=== PATIENT | female | born 1955 | race Two or more races ===

== ENCOUNTER 2019-02-01 10:21 | Inpatient (IN) | payer MEDICARE, OTHER ==
[2019-02-01 10:38] VITALS: BMI 31.2
[2019-02-01] MEDS ORDERED: SODIUM CHLORIDE 1,000 ML IV STA (10:53)
[2019-02-01] MEDS ORDERED: ACETAMINOPHEN 1000 MG/100 ML VIAL (NON FORMULARY) IVPB ONE (10:56)
--- NOTE | 2019-02-01 10:56 | PDOC ---
History of Present Illness - General Chief Complaint: Pain Stated Complaint: RT. SIDE ABD. PAIN Time Seen by Provider: 02/01/19 10:53 History Source: Patient, Family Exam Limitations: No Limitations - History of Present Illness Initial Comments: 02/01/19 11:16 HPI 63-year-old female with history of hypertension, hyperlipidemia, diabetes mellitus presenting with RLQ abdominal pain x 2 days, a/w dizziness, anorexia, decreased appetite and PO intake, nausea. AP described as nonradiating, sharp - no alleviating or exacerbating factors. Last PO intake 2 days ago, has been drinking some water. Last medication intake ~yesterday morning, took tylenol with some relief of sx, but abdominal pain returned. Denies fever, chills, chest pain, SOB, palpitation, weakness, V, D, bladder and bowel problems, leg swelling, No sick contacts or travel. No new changes in medications. No suspicious food intake Allergies: None Past Medical History: HTN, HLD, DM2 Social history: Lives with family. No tobacco, ETOH or drug use. Surgical history: none Meds: as documented in EMR - ASA, vitamins, calcium, lisinopril, atorvastatin PMD: Antoni Falcon Review of systems Constitutional: +fevers, chills, anorexia HEENT: no headache, +dizziness. CVS: no cp or syncope. Resp: no sob. No cough. Gastrointestinal: +abdominal pain, nausea. No vomiting, diarrhea. No flank pain Genitourinary: no urinary sx, hematuria. No urgency or frequency. MUSCULOSKELETAL: No joint pain and swelling. No neck or back pain. SKIN: no redness or skin changes, no discharge, no rash. No wounds. Hematologic: no easy bruising/bleeding. NEUROLOGIC: +dizziness. No headache, LOC or altered mental status. No weakness, numbness or tingling. Psych: no anxiety or depression Allergic/Immunologic: no allergies All other systems reviewed and negative, or as documented in HPI. Physical exam: General: Well appearing, awake and alert, NAD. HEENT: NCAT, PERRL, EOMI, clear conjunctiva, anicteric, dry mucus membranes, clear oropharynx, no oral lesions.. Neck: neck supple, FROM Resp: CTAB, normal and even respirations, no respiratory distress CVS: tachycardia, no murmurs, 2+ peripheral pulses throughout, no peripheral edema Abdomen: soft, +RLQ TTP, no rebound, no Rovsings. No CVAT. Back: nontender, normal inspection and ROM MSK: no edema, GERARDO x4, ROM intact. No clubbing or cyanosis. normal bulk and tone. Neuro: alert, no focal neuro deficits. Skin: warm and well perfused, cap refill <2 sec, normal color 02/01/19 11:58 02/01/19 12:11 Past History - Past Medical History Allergies/Adverse Reactions: Allergies Allergy/AdvReac Type Severity Reaction Status Date / Time No Known Allergies Allergy Verified 02/01/19 10:35 Home Medications: Ambulatory Orders Lisinopril [Prinivil] 20 mg PO DAILY #30 tablet 11/17/14 COPD: No Diabetes: Yes HTN: Yes - Immunization History Immunization Up to Date: No - Suicide/Smoking/Psychosocial Hx Smoking History: Never smoked Information on smoking cessation initiated: No Hx Alcohol Use: No Drug/Substance Use Hx: No Substance Use Type: None *Physical Exam - Vital Signs Last Vital Signs Temp Pulse Resp BP Pulse Ox 100.0 F H 105 H 17 132/75 95 02/01/19 10:35 02/01/19 10:35 02/01/19 10:35 02/01/19 10:35 02/01/19 10:35 Heart Score/ECG Review #1 ECG reviewed & interpreted by me at: 11:40 General ECG Interpretation: Sinus Rhythm, Normal Rate 02/01/19 11:59 EKG normal sinus rhythm at 92 bpm, no interval abnormalities, narrow QRS, ST and T wave segments and morphology normal. Nonspecific T wave abnormalities ED Treatment Course - LABORATORY CBC & Chemistry Diagram: 02/01/19 11:20 02/01/19 11:20 Medical Decision Making - Medical Decision Making 02/01/19 11:16 See HPI for details Vital signs reviewed, +fever and tachycardia, normotensive DDx abdominal pain: Renal colic, biliary colic, metabolic/electrolyte derangements. GERD, PUD, esophageal spasm, pancreatitis, hepatitis, constipation , colitis, gastroenteritis, cholecystitis, UTI, pyelonephritis, ileus, SBO, medication side effect, hernia, appendicitis, peritonitis, perf viscus, diverticulitis, mesenteric ischemia. Prior notes reviewed, including admissions, discharges and consultations. laboratory results and imaging reviewed, basic labs and lytes wnl, notable for significant leukocytosis of 21K, remainder unremarkable. UA_prelim with nonspecific leuk esterase, f/u urine cultures. EKG normal sinus rhythm, no interval abnormalities, narrow QRS, ST and T wave segments and morphology normal. Nonspecific T wave abnormalities ED course - IV tylenol, fluids and analgesia. pain much improved. no peritoneal signs. hypotension likely 2/2 morphine, given 2nd liter of IVF and monitor - CT a/p to eval for Appy, high suspicion. no abdominal surgeries. CT confirms acute appy, no rupture or abscess or perf - NPO x 2 days, no appetite, only drinking water. - IV abx zosyn for empiric coverage of Acute appy, medical comorbidities and age >65 - broad coverage - surg cs dispo: admit to med/surg management of acute appy, NPO, bowel rest and analgesia prn. s/o to Dr Rai, surg cs with Dr Cordoba per primary request. primary is Dr Falcon. 02/01/19 14:14 *DC/Admit/Observation/Transfer Diagnosis at time of Disposition: Appendicitis, acute Qualifiers: Acute appendicitis type: unspecified acute appendicitis type Qualified Code(s) : K35.80 - Unspecified acute appendicitis - Discharge Dispostion Condition at time of disposition: Guarded Decision to Admit order: Yes Decision to Admit order Date/Time: 02/01/19 14:13 Decision to Admit Order Category Date Time Status Decision to Admit to Hospital Routine Admission 02/01/19 14:08 Active - Referrals - Patient Instructions - Post Discharge Activity
[2019-02-01] MEDS ORDERED: morphine CARPU-JECT 4 MG/1 ML DISP.SYRIN IVPUSH ONE (11:17)
[2019-02-01] MEDS ORDERED: ACETAMINOPHEN INJECTION 100 ML IVPB ONE (11:27)
[2019-02-01 11:35] LABS: BASO % 0.5 % (0-2.0); HEMATOCRIT 37.7 % (32.4-45.2); HEMOGLOBIN 12.7 GM/dL (10.7-15.3); LYMPH % 11.3 % (8-40); MCH 31.1 pg (25.7-33.7); MCHC 33.6 g/dl (32.0-36.0); MEAN CELL VOLUME 92.7 fl (80-96); MEAN PLT VOLUME 7.8 fl (7.5-11.1); MONO % 5.6 % (3.8-10.2); NEUT % 82.6 % (42.8-82.8); PLATELET COUNT 339 K/MM3 (134-434); RBC 4.07 M/mm3 (3.60-5.2); RDW 14.5 % (11.6-15.6); WHITE BLOOD COUNT 21.7 K/mm3 (4.0-10.0)
[2019-02-01 11:57] LABS: ALBUMIN 3.3 g/dl (3.4-5.0); ALK PHOS 88 U/L (45-117); ANION GAP 9 MMOL/L (8-16); BILIRUBIN,TOTAL 0.5 mg/dL (0.2-1); BLOOD UREA NITROGEN 20 mg/dL (7-18); CALCIUM 8.6 mg/dL (8.5-10.1); CHLORIDE 96 mmol/L (98-107); CO2 28 mmol/L (21-32); CREATININE 0.9 mg/dL (0.55-1.3); GLUCOSE,RANDOM 237 mg/dL (74-106); LIPASE 43 U/L (73-393); POTASSIUM 4.2 mmol/L (3.5-5.1); SGOT/AST 7 U/L (15-37); SGPT/ALT 16 U/L (13-61); SODIUM 133 mmol/L (136-145); TOT PROT 6.7 g/dl (6.4-8.2)
[2019-02-01] MEDS ORDERED: morphine SULFATE 4 MG/ML VIAL ONE ×2 (12:03→21:33)
[2019-02-01] MEDS ORDERED: PIPERACILLIN/TAZOB 4.5 GM 4.5 GM in DEXTROSE 5%-WATER 100 ML IVPB ONE (12:59)
[2019-02-01 13:04] LABS: ANISOCYTOSIS 2+; MACROCYTOSIS 0; PLATELET ESTIMATE NORMAL
[2019-02-01] MEDS ORDERED: PIPERACILLIN/TAZOB 4.5 GM 4.5 GM/100 ML BAG IVPB ONE ×2 (13:07→21:33)
[2019-02-01 13:41] LABS: URINE APPEARANCE CLEAR; URINE BILIRUBIN NEGATIVE (NEGATIVE); URINE COLOR YELLOW; URINE GLUCOSE (UA) NEGATIVE (NEGATIVE); URINE KETONE NEGATIVE (NEGATIVE); URINE LEUK ESTERASE 1+ (NEGATIVE); URINE NITRITE NEGATIVE (NEGATIVE); URINE PROTEIN NEGATIVE (NEGATIVE); URINE UROBILINOGEN 0.2 mg/dL (0.2-1.0)
[2019-02-01 14:08] LABS: EPI CELLS 1.2 /HPF (0-5/HPF); URINE BACTERIA 16.3 /hpf (NEGATIVE); URINE CASTS 1.86 /lpf (0-8); URINE WBC 5.2 /hpf (0-5)
[2019-02-01] MEDS ORDERED: SODIUM CHLORIDE 0.9% 500 ML INFUS.BAG IV ONE (14:10)
[2019-02-01] MEDS ORDERED: ACETAMINOPHEN 1000 MG/100 ML VIAL (NON FORMULARY) IVPB PRN (15:10)
[2019-02-01] MEDS ORDERED: morphine SULFATE 4 MG/ML VIAL IVPUSH PRN (15:10)
[2019-02-01] MEDS ORDERED: METOPROLOL TARTRATE 5 MG/5 ML VIAL IVPB PRN (15:21)
--- NOTE | 2019-02-01 15:47 | HP ---
Admitting History and Physical - Primary Care Physician PCP: Antoni Falcon S - Admission Chief Complaint: abdominal pain History of Present Illness: 63-year-old female with history of hypertension, hyperlipidemia, diabetes mellitus presenting with RLQ abdominal pain x 2 days, a/w dizziness, anorexia, decreased appetite and PO intake, nausea. pain is described as nonradiating, sharp - no alleviating or exacerbating factors. Last PO intake 2 days ago, has been drinking some water. Last medication intake ~yesterday morning, took tylenol with some relief of sx, but abdominal pain returned. per daughter mother last took aspirin on friday since then she has not eaten anything bc she felt nauseous and hot so came to ER Denies fever, chills, chest pain, SOB, palpitation, weakness, V, D, bladder and bowel problems, leg swelling, No sick contacts or travel. No new changes in medications. No suspicious food intake in ER found to have temp 100.0 wbc 21 History Source: Patient, Family Member, Medical Record - Past Medical History Cardiovascular: Yes: HTN, Hyperlipdemia Endocrine: Yes: Diabetes Mellitus - Smoking History Smoking history: Never smoked - Alcohol/Substance Use Hx Alcohol Use: No Home Medications - Allergies Allergies/Adverse Reactions: Allergies Allergy/AdvReac Type Severity Reaction Status Date / Time No Known Allergies Allergy Verified 02/01/19 10:35 - Home Medications Home Medications: Ambulatory Orders Aspirin [Aspirin EC] 81 mg PO DAILY 02/01/19 Atorvastatin Ca [Lipitor] 40 mg PO HS 02/01/19 Calcium Carb, Citrate/Vit D3 [Calcium + D3 ER Tablet] 1 each PO DAILY 02/01/19 Glimepiride 4 mg PO BID 02/01/19 Lisinopril [Prinivil] 10 mg PO DAILY 02/01/19 Review of Systems - Review of Systems Constitutional: reports: Loss of Appetite Gastrointestinal: reports: Abdominal Pain Physical Examination Vital Signs: Vital Signs Temperature 99.0 F 02/01/19 13:48 Pulse Rate 92 H 02/01/19 13:48 Respiratory Rate 20 02/01/19 13:48 Blood Pressure 99/59 L 02/01/19 13:48 O2 Sat by Pulse Oximetry (%) 94 L 02/01/19 13:50 Constitutional: Yes: Calm Cardiovascular: Yes: Regular Rate and Rhythm, S1, S2 Respiratory: Yes: CTA Bilaterally Gastrointestinal: Yes: Normal Bowel Sounds, Tenderness (RLQ) Labs: CBC, BMP 02/01/19 11:20 02/01/19 11:20 Imaging - Results Cat Scan: Report Reviewed (extensive inflammatory changes in RLQ with hepatospleenomegaly and fatty liver) Problem List - Problems (1) Appendicitis, acute Assessment/Plan: NPO IVF IV zosyn ID surgical; eval pain control Dr Cordoba iv zofran as needed dvt ppx Code(s): K35.80 - UNSPECIFIED ACUTE APPENDICITIS Qualifiers: Acute appendicitis type: unspecified acute appendicitis type Qualified Code (s): K35.80 - Unspecified acute appendicitis (2) HTN (hypertension) Assessment/Plan: hold anti hn given low BP Code(s): I10 - ESSENTIAL (PRIMARY) HYPERTENSION (3) Fever Assessment/Plan: leukocytosis cultures urine and blood ID iv abx Code(s): R50.9 - FEVER, UNSPECIFIED
[2019-02-01] MEDS: SODIUM CHLORIDE 1,000 ML IV SCH (16:45)
--- NOTE | 2019-02-01 17:51 | EKG ---
Test Reason : Blood Pressure : / mmHG Vent. Rate : 092 BPM Atrial Rate : 092 BPM P-R Int : 132 ms QRS Dur : 080 ms QT Int : 352 ms P-R-T Axes : 061 042 042 degrees QTc Int : 435 ms NORMAL SINUS RHYTHM POSSIBLE LEFT ATRIAL ENLARGEMENT NONSPECIFIC ST ABNORMALITY ABNORMAL ECG WHEN COMPARED WITH ECG OF 17-NOV-2014 14:48, VENT. RATE HAS INCREASED BY 33 BPM Confirmed by RITA MILIAN MD ([id number]) on 02/01/2019 5:50:57 PM Referred By: Confirmed By:RITA MILIAN MD
--- NOTE | 2019-02-01 17:59 | CONSULT ---
Consult Consult Specialty:: Surgery Referred by:: Nurys Reason for Consultation:: Abdominal pain , acute appendicitis. - History of Present Illness Chief Complaint: C/O Right lowerquadrant abdominal pain x 2 days. - History Source History Provided By: Patient, Family Member Limitations to Obtaining History: No Limitations - Past Medical History Cardio/Vascular: Yes: HTN, Hyperlipdemia Endocrine: Yes: Diabetes Mellitus - Alcohol/Substance Use Hx Alcohol Use: No - Smoking History Smoking history: Never smoked Home Medications - Allergies Allergies/Adverse Reactions: Allergies Allergy/AdvReac Type Severity Reaction Status Date / Time No Known Allergies Allergy Verified 02/01/19 10:35 - Home Medications Home Medications: Ambulatory Orders Aspirin [Aspirin EC] 81 mg PO DAILY 02/01/19 Atorvastatin Ca [Lipitor] 40 mg PO HS 02/01/19 Calcium Carb, Citrate/Vit D3 [Calcium + D3 ER Tablet] 1 each PO DAILY 02/01/19 Glimepiride 4 mg PO BID 02/01/19 Lisinopril [Prinivil] 10 mg PO DAILY 02/01/19 Review of Systems - Review of Systems Gastrointestinal: reports: Abdominal Pain Physical Exam Vital Signs: Vital Signs Temperature 99.1 F 02/01/19 15:45 Pulse Rate 80 02/01/19 15:45 Respiratory Rate 18 02/01/19 15:45 Blood Pressure 100/55 L 02/01/19 15:45 O2 Sat by Pulse Oximetry (%) 96 02/01/19 15:45 Gastrointestinal: Yes: Abdomen, Obese, Tenderness (Tender in right lowerquadrant of abdomen. Obese) Labs: CBC, BMP 02/01/19 11:20 02/01/19 11:20 Imaging - Results Cat Scan: Report Reviewed, Image Reviewed (Acute appendicitis with adjacent inflammation of cecum and ilium.) Problem List - Problems (1) Appendicitis, acute Code(s): K35.80 - UNSPECIFIED ACUTE APPENDICITIS Qualifiers: Acute appendicitis type: unspecified acute appendicitis type Qualified Code (s): K35.80 - Unspecified acute appendicitis (2) Abdominal pain Code(s): R10.9 - UNSPECIFIED ABDOMINAL PAIN Qualifiers: Abdominal location: right lower quadrant Qualified Code(s): R10.31 - Right lower quadrant pain (3) Obesity Code(s): E66.9 - OBESITY, UNSPECIFIED (4) HTN (hypertension) Code(s): I10 - ESSENTIAL (PRIMARY) HYPERTENSION Assessment/Plan Impression : Acute appendictis. Plan : laparoscopic appendectomy possible open. Procedure was explained to the patient and her daughter. Consent obtained. Risks , benefits and complications were explained .
[2019-02-01] MEDS ORDERED: PIPERACILLIN/TAZOB 3.375 GM 3.375 GM in DEXTROSE 5%-WATER - 50 ML IVPB SCH ×2 (18:00→19:15)
[2019-02-01] MEDS ORDERED: fentaNYL CITRATE 250 MCG/5 ML VIAL ONE (19:56)
[2019-02-01] MEDS ORDERED: SUCCINYLCHOLINE CHLORIDE 200 MG/10 ML VIAL ONE (19:56)
[2019-02-01] MEDS ORDERED: PROPOFOL 20 ML ONE (19:56)
--- NOTE | 2019-02-01 20:00 | OP ---
Operative Note - Note: Operative Date: 02/01/19 Pre-Operative Diagnosis: Acute Appendicitis Operation: Laparoscopic appendectomy Surgeon: Yaw Cordoba Anesthesiologist/SUSTAINABILITY CONSULTANT: Don Yee Anesthesia: General Specimens Removed: Appendix
[2019-02-01] MEDS ORDERED: ROCURONIUM BROMIDE 50 MG/5 ML VIAL ONE (20:11)
[2019-02-01] MEDS ORDERED: KETOROLAC TROMETHAMINE 30 MG/1 ML VIAL ONE ×2 (20:12→21:33)
[2019-02-01] MEDS ORDERED: DEXAMETHASONE SOD PHOSPHATE 4 MG/1 ML VIAL ONE (20:12)
[2019-02-01] MEDS ORDERED: BUPIVACAINE HCL/PF (5 MG/ML) 30 ML VIAL IJ ONE (20:49)
[2019-02-01] MEDS ORDERED: NEOSTIGMINE METHYLSULFATE 0.5 MG/ML - 10 ML MDV ONE (20:54)
[2019-02-01] MEDS ORDERED: GLYCOPYRROLATE 0.2 MG/1 ML VIAL ONE ×2 (20:55)
--- NOTE | 2019-02-01 21:10 | OP ---
Operative Note - Note: Operative Date: 02/01/19 Pre-Operative Diagnosis: Acute appendicitis Operation: Laparoscopic appendectomy. Findings: Acute gangrenous appendicitis with perforation and abscess. Retrocecal appendix Post-Operative Diagnosis: Other (Acute gangrenous , perforated appendicitis with perappendiceal abscess.) Surgeon: Yaw Cordoba Specimens Removed: Appendix Estimated Blood Loss (mls): 10 Operative Report Dictated: Yes
[2019-02-01] MEDS ORDERED: ONDANSETRON 4 MG/2 ML VIAL IVPUSH PRN (21:21)
[2019-02-01] MEDS ORDERED: PROMETHAZINE HCL 25 MG/1 ML VIAL IVPUSH PRN (21:21)
[2019-02-01] MEDS ORDERED: oxyCODONE HCL 5 MG TABLET PO PRN (21:21)
[2019-02-01] MEDS ORDERED: D5-1/2NS+20 MEQ KCL - 20 MEQ/1,000 ML INFUS.BAG IV SCH (21:30)
[2019-02-01] MEDS ORDERED: morphine CARPU-JECT 4 MG/1 ML DISP.SYRIN IVPUSH PRN (21:33)
[2019-02-01] MEDS: ACETAMINOPHEN 1000 MG/100 ML VIAL (NON FORMULARY) IVPB ONE (21:35)
--- NOTE | 2019-02-01 22:19 | OP ---
DATE OF OPERATION: 02/01/2019 PREOPERATIVE DIAGNOSIS: Acute appendicitis. POSTOPERATIVE DIAGNOSES: Acute gangrenous appendicitis with perforation and abscess and retrocecal appendix. SURGEON: Celestina Cordoba MD ANESTHESIA: General anesthesia. OPERATIVE DESCRIPTION: This 63-year-old woman presented with right lower quadrant abdominal pain for 2 days, with nausea and vomiting. The patient was tender in the right lower quadrant. CT scan suggested acute inflammation with appendicitis. Patient is also obese and diabetic. Consent was obtained for laparoscopic appendectomy, possible open. Risks, benefits, and complications had been discussed with the patient. The patient was given Zosyn in the emergency room. Patient brought to the operating room, general anesthesia was administered. Sosa catheter was placed in the bladder, which was removed right after surgery. The abdomen was painted and draped. Timeout was called. An incision was made in the infraumbilical portion of the umbilicus. This was deepened through the skin, subcutaneous tissue, and linea alba. The peritoneum was incised and a 12-mm laparoscopic trocar of the Danyel type was introduced into the abdominal cavity. The abdomen was insufflated with carbon dioxide at 6 L/min with an ultimate intraabdominal pressure of 15 mmHg. Two stay sutures of 2-0 Vicryl were obtained to anchor the trocar to the abdominal wall. Another 5-mm trocar was inserted in the midline and this was in the suprapubic region. This was noted to enter the abdominal cavity under direct vision of the camera. A 3rd trocar, another 5-mm, was inserted in the right upper quadrant of the abdomen. This was, again, noted to enter the abdominal cavity under direct vision of the camera. The camera was then switched to the suprapubic port. With an EndoPeanut, the right lower quadrant was visualized. There was a lot of purulent exudate over the cecum, appendix, and terminal ileum. The appendix was noted to be retrocecal in location and gangrenous about 1 to 2 cm from the base of the appendix. The cecum was then mobilized towards the midline, incising the lateral peritoneal reflection, thus visualizing the appendix more clearly. With sharp and blunt dissection, the base of the appendix was freed from the cecum. When this was freed, an EndoGIA was introduced through the umbilical port and fired across the base of the appendix. The staple line was complete. The base of the appendix was then held with a grasper in the right upper quadrant of the abdomen and retracted anteriorly and cephalad, thus exposing more of the mesoappendix. This was then carefully divided between using the Harmonic Scalpel, all the way towards the tip of the appendix. The appendectomy was, thus, completed. An EndoCatch was then introduced through the umbilical port. The appendix was placed in the EndoCatch and retrieved out of the abdominal cavity. A swab was obtained for culture and antibiotic sensitivity examination from the surface of the appendix. The appendix was then sent to Pathology. The cecum and terminal ileum were then freed from their adhesions. The terminal ileum was normal, with no inflammation. There was a lot of exudate on the peritoneal surface, which was thoroughly irrigated with normal saline. There was no kink in the terminal ileum. This was freed all the way towards the cecum. After thorough irrigation of the right lower quadrant of the abdomen, a 10-mm DANIA drain was introduced through the umbilical port and brought out through the suprapubic port. The DANIA was then left in the pelvis in the right lateral gutter of the ascending colon. After thorough irrigation, the instruments and trocars were removed from the abdominal cavity. The linea alba in the midline was approximated with interrupted [id number] 2-0 Vicryl sutures. Then, 0.5% Marcaine was injected into the wound. Skin was approximated with buried, interrupted 4-0 Biosyn sutures. Dermabond was applied to close the skin edges. The drain was sutured to the skin edge with 2- 0 Prolene sutures. ESTIMATED BLOOD LOSS: About 15 to 20 mL. SPONGE COUNT/INSTRUMENT COUNT: Correct. The patient was extubated and sent to the recovery room in satisfactory and stable condition. Ana [id number] MTDD
--- NOTE | 2019-02-02 00:29 | HOSP ---
Subjective - Review of Symptoms Pulmonary: Yes: Dyspnea Physical Examination Vital Signs: Vital Signs Temperature 99.7 F H 02/01/19 22:19 Pulse Rate 102 H 02/01/19 22:19 Respiratory Rate 16 02/01/19 22:19 Blood Pressure 132/68 02/01/19 22:19 O2 Sat by Pulse Oximetry (%) 96 02/01/19 22:18 Cardiovascular: Yes: Tachycardia Respiratory: Yes: CTA Bilaterally, On Nasal O2, SOB Labs: CBC, BMP 02/01/19 11:20 02/01/19 11:20 Hospitalist Encounter Assessment: Episodic Note 02/02 @ 12am Called by RN patient has hypoxia on room air and patient mainly Telugu speaking and with c/o SOB. S She is status point appendectomy by Dr. Cordoba for acute appendicitis and returned from the OR around 10pm. Oxygen saturation has improved on oxygen therapy 4 L by nasal canula. Patient was seen and examined at bedside. She has tachycardia with heart rates in the 100's. She does not appear to be fluid overloaded. Lungs are clear and no significant lower extremity noted. She reports shortness of breath. BP is stable. She does not appear to be in acute respiratory distress. Plan: Will check ABG and BNP STAT. She has a normal creatinine. CT angiogram of chest ordered STAT to exclude pulmonary embolism. Transfer to telemetry floor. Plan of care discussed with RN. Critical Care Total Critical Care Time (in minutes): 15
[2019-02-02 00:57] LABS: INR 1.12 (0.83-1.09); PROTHROMBIN TIME (PATIENT) 13.2 SEC (9.7-13.0)
[2019-02-02] MEDS ORDERED: PIPERACILLIN/TAZOB 2.25 GM 2.25 GM in DEXTROSE 5%-WATER - 50 ML IVPB ONE (01:50)
[2019-02-02] MEDS ORDERED: AZITHROMYCIN IVPB 500 MG/250 ML BAG IVPB ONE (01:50)
[2019-02-02] MEDS: PIPERACILLIN/TAZOB 3.375 GM 3.375 GM in DEXTROSE 5%-WATER - 50 ML IVPB SCH ×4 (02:00→17:20)
[2019-02-02] MEDS ORDERED: PIPERACILLIN/TAZOB 3.375 GM 3.375 GM in DEXTROSE 5%-WATER - 50 ML IVPB SCH (02:00)
[2019-02-02] MEDS: ACETAMINOPHEN 1000 MG/100 ML VIAL (NON FORMULARY) IVPB ONE (05:20)
[2019-02-02 07:01] LABS: BASO % 0.1 % (0-2.0); HEMATOCRIT 32.2 % (32.4-45.2); HEMOGLOBIN 10.9 GM/dL (10.7-15.3); LYMPH % 6.5 % (8-40); MCH 30.9 pg (25.7-33.7); MCHC 33.7 g/dl (32.0-36.0); MEAN CELL VOLUME 91.6 fl (80-96); MEAN PLT VOLUME 7.8 fl (7.5-11.1); MONO % 3.4 % (3.8-10.2); PLATELET COUNT 300 K/MM3 (134-434); RBC 3.52 M/mm3 (3.60-5.2); RDW 14.7 % (11.6-15.6); WHITE BLOOD COUNT 16.8 K/mm3 (4.0-10.0)
[2019-02-02 07:17] LABS: ALBUMIN 2.6 g/dl (3.4-5.0); ALK PHOS 76 U/L (45-117); ANION GAP 9 MMOL/L (8-16); BILIRUBIN,TOTAL 0.6 mg/dL (0.2-1); BLOOD UREA NITROGEN 13 mg/dL (7-18); CALCIUM 8.5 mg/dL (8.5-10.1); CHLORIDE 107 mmol/L (98-107); CO2 25 mmol/L (21-32); CREATININE 0.6 mg/dL (0.55-1.3); GLUCOSE,RANDOM 203 mg/dL (74-106); POTASSIUM 4.2 mmol/L (3.5-5.1); SGOT/AST 4 U/L (15-37); SGPT/ALT 13 U/L (13-61); SODIUM 140 mmol/L (136-145); TOT PROT 5.5 g/dl (6.4-8.2)
[2019-02-02] MEDS ORDERED: PHENOL 177 ML SPRAY BOTTLE MM PRN (08:36)
[2019-02-02] MEDS ORDERED: SIMETHICONE 80 MG TAB.CHEW (FP) PO PRN (08:36)
[2019-02-02] MEDS ORDERED: BENZOCAINE/MENTH/CETYLPYRD CL 1 EACH LOZENGE MM PRN (08:36)
--- NOTE | 2019-02-02 08:41 | PN ---
Progress Note, Physician Chief Complaint: EVENTS AND NOTES REVIEWED S/P APPENDECTOMY C/O PRESSURE LIKE PAIN ABD - Current Medication List Current Medications: Active Medications Acetaminophen (Ofirmev Injection -) 1,000 mg IVPB Q6H PRN PRN Reason: PAIN LEVEL 1-5 Benzocaine/Menthol (Cepacol Lozenge -) 1 each MM PRN PRN PRN Reason: SORE THROAT Chlorhexidine Gluconate (Hibiclens For Decolonization -) 1 applic TP HS LEFTY Sodium Chloride (Normal Saline -) 1,000 mls @ 75 mls/hr IV ASDIR LEFTY Last Admin: 02/01/19 16:45 Dose: 75 mls/hr Piperacillin Sod/Tazobactam (Sod 3.375 gm/ Dextrose) 50 mls @ 100 mls/hr IVPB Q8H-IV LEFTY; Protocol Stop: 02/02/19 10:29 Last Admin: 02/02/19 05:23 Dose: Not Given Piperacillin Sod/Tazobactam (Sod 3.375 gm/ Dextrose) 50 mls @ 100 mls/hr IVPB Q8H-IV LEFTY; Protocol Morphine Sulfate (Morphine Sulfate) 4 mg IVPUSH Q6H PRN PRN Reason: PAIN LEVEL 6-10 Mupirocin (Bactroban Ointment (For Decolonization) -) 1 applic NS BID LEFTY Stop: 02/07/19 09:59 Phenol/Menthol (Chloraseptic -) 1 spray MM Q6HPO PRN PRN Reason: SORE THROAT Simethicone (Mylicon -) 80 mg PO Q4H PRN PRN Reason: INDIGESTION - Objective Vital Signs: Vital Signs Temperature 98.2 F 02/02/19 06:00 Pulse Rate 89 02/02/19 06:00 Respiratory Rate 18 02/02/19 06:00 Blood Pressure 108/61 02/02/19 06:00 O2 Sat by Pulse Oximetry (%) 96 02/02/19 05:56 Constitutional: Yes: Mild Distress Eyes: Yes: WNL HENT: Yes: WNL Neck: Yes: WNL Cardiovascular: Yes: Regular Rate and Rhythm Respiratory: Yes: WNL Gastrointestinal: Yes: Distention, Tenderness, Other Genitourinary: Yes: Incontinence Musculoskeletal: Yes: WNL Extremities: Yes: WNL Edema: No Peripheral Pulses WNL: Yes Integumentary: Yes: WNL Wound/Incision: Yes: Clean/Dry Neurological: Yes: WNL ...Motor Strength: WNL Psychiatric: Yes: WNL Labs: CBC, BMP 02/02/19 05:30 02/02/19 05:30 INR, PTT INR 1.12 (0.83-1.09) H 02/01/19 11:50 Problem List - Problems (1) Abdominal pain Code(s): R10.9 - UNSPECIFIED ABDOMINAL PAIN Qualifiers: Abdominal location: right lower quadrant Qualified Code(s): R10.31 - Right lower quadrant pain (2) Appendicitis, acute Code(s): K35.80 - UNSPECIFIED ACUTE APPENDICITIS Qualifiers: Acute appendicitis type: unspecified acute appendicitis type Qualified Code (s): K35.80 - Unspecified acute appendicitis (3) HTN (hypertension) Code(s): I10 - ESSENTIAL (PRIMARY) HYPERTENSION (4) Obesity Code(s): E66.9 - OBESITY, UNSPECIFIED Assessment/Plan POD #1 APPENDECTOMY IV ZOSYN DVT PROPHYLAXIS/INCENTIVE SPIROMETER ORDERED F/U LABS OOB TO CHAIR
--- NOTE | 2019-02-02 09:09 | CON.CARD ---
Consult Consult Specialty:: Cardiology Referred by:: Dr. Nuno Reason for Consultation:: CAD - History of Present Illness Chief Complaint: sob History of Present Illness: 63 year old woman with pmh htn, hld, dmii, admitted with acute appendicitis s/p appendectomy 02/01/19 which was found to be gangrenous and perforated, developed sob and hypoxia postoperatively. CTA chest done showing no PE, no evidence of pulmonary edema, possible infiltrates. Pt seen and examined today in nad. pts daughter on phone acts as custodial services manager at pts request. pt states she is feeling better this am. no further sob. no chest pain. only abdominal discomfort. - History Source History Provided By: Patient, Family Member Limitations to Obtaining History: Language Barrier - Past Medical History Cardio/Vascular: Yes: HTN, Hyperlipdemia Endocrine: Yes: Diabetes Mellitus - Alcohol/Substance Use Hx Alcohol Use: No - Smoking History Smoking history: Never smoked - Social History ADL: Independent History of Recent Travel: No Home Medications - Allergies Allergies/Adverse Reactions: Allergies Allergy/AdvReac Type Severity Reaction Status Date / Time No Known Allergies Allergy Verified 02/01/19 10:35 - Home Medications Home Medications: Ambulatory Orders Aspirin [Aspirin EC] 81 mg PO DAILY 02/01/19 Atorvastatin Ca [Lipitor] 40 mg PO HS 02/01/19 Calcium Carb, Citrate/Vit D3 [Calcium + D3 ER Tablet] 1 each PO DAILY 02/01/19 Glimepiride 4 mg PO BID 02/01/19 Lisinopril [Prinivil] 10 mg PO DAILY 02/01/19 Family Disease History - Family Disease History Family History: Denies Review of Systems - Review of Systems Constitutional: denies: No Symptoms, Chills, Diaphoresis, Fever, Lethargy, Loss of Appetite, Malaise, Night Sweats, Unintentional Wgt. Loss, Weakness, Other Eyes: denies: No Symptoms, Blind Spots, Blurred Vision, Double Vision, Eye Pain , Floaters, Photophobia, Recent Change in Vision, Other HENT: denies: No Symptoms, Difficult Swallowing, Ear Discharge, Ear Pain, Epistaxis, Gingival Bleeding, Hearing Loss, Mouth Swelling, Nasal Congestion, Ocular Prosthesis, Throat Pain, Toothache, Ringing in Ears, Other Neck: denies: No Symptoms, Decreased ROM, Lumps, Pain on Movement, Stiffness, Swollen Glands, Tenderness, Other Cardiovascular: reports: Shortness of Breath. denies: No Symptoms, Chest Pain, Edema, Palpitations, Other Respiratory: reports: SOB. denies: No Symptoms, Cough, Exercise Intolerance, Hemoptysis, Orthopnea, PND, Snoring, SOB on Exertion, Wheezing, Other Gastrointestinal: reports: Abdominal Pain, Nausea, Vomiting. denies: No Symptoms, Bloating, Constipation, Diarrhea, Dysphagia, Indigestion, Melena, Rectal Bleeding, Vomiting Blood, Other Genitourinary: denies: No Symptoms, Burning, Discharge, Dysuria, Flank Pain, Frequency, Hematuria, Incontinence, Lesions, Menses, Pain, Testicular Mass, Testicular Pain, Testicular Swelling, Urgency, Vaginal Bleeding, Other Breasts: denies: No Symptoms Reported, See HPI, Breast Implants, Discharge from Nipple, Lumps, Pain, Skin Changes, Other Musculoskeletal: denies: No Symptoms, Back Pain, Crepitus, Decreased ROM, Extremity Pain, Joint Pain, Joint Swelling, Muscle Pain, Muscle Cramps, Muscle Weakness, Other Integumentary: reports: Incision. denies: No Symptoms, Blister, Bruising, Change in Color, Eczema, Erythema, Lesions, Lump, Pallor, Pruritis, Rash, Wound , Other Neurological: denies: No Symptoms, Change in LOC, Change in Speech, Confusion, Dizziness, Headache, Incoordination, Numbness, Parasthesia, Pre-Existing Deficit , Seizure, Syncope, Tremors, Unsteady Gait, Weakness, Other Endocrine: denies: No Symptoms, Excessive Sweating, Flushing, Increased Hunger, Increased Thirst, Intolerance to Cold, Intolerance to Heat, Unexplained Weight Gain, Unexplained Weight Loss, Other Hematology/Lymphatic: denies: No Symptoms, Easily Bruised, Excessive Bleeding, Swollen Glands, Other Psychiatric: denies: No Symptoms, Altered Sleep Pattern, Anxiety, Depression, Hallucinations, Panic, Paranoia, Suicidal, Other - Risk Factors Known Risk Factors: Yes: Diabetes Mellitus, Hypercholesterolemia, Hypertension Vital Signs: Vital Signs Temperature 98.2 F 02/02/19 06:00 Pulse Rate 89 02/02/19 08:00 Respiratory Rate 20 02/02/19 08:00 Blood Pressure 118/61 02/02/19 08:00 O2 Sat by Pulse Oximetry (%) 96 02/02/19 05:56 Constitutional: Yes: No Distress, Calm Eyes: Yes: Conjunctiva Clear, EOM Intact, PERRL HENT: Yes: Atraumatic, Normocephalic Neck: Yes: Supple, Trachea Midline Respiratory: Yes: Regular, Diminished, On Nasal O2. No: Rales, Rhonchi, SOB, Wheezes Gastrointestinal: Yes: Normal Bowel Sounds, Tenderness. No: Distention Cardiovascular: Yes: Regular Rate and Rhythm. No: Bradycardia, Tachycardia, Pulse Irregular, Gallop, Rub, Varicosities JVD: No Carotid Bruit: No PMI: Non-Displaced Heart Sounds: Yes: S1, S2. No: Split S2, S3, S4, Clicks, Gallop, Rub, Bruit Murmur: No: Systolic Murmur, Diastolic Murmur Extremities: Yes: WNL Edema: No Peripheral Pulses WNL: Yes Neurological: Yes: Alert, Oriented Psychiatric: Yes: Alert, Oriented - Other Data Labs, Other Data: CBC, BMP 02/02/19 05:30 02/02/19 05:30 INR, PTT INR 1.12 (0.83-1.09) H 02/01/19 11:50 Troponin, BNP 02/02/19 00:01 B-Natriuretic Peptide 552.2 H Troponin, BNP 02/02/19 00:01 B-Natriuretic Peptide 552.2 H ekg 02/01/19 nsr 92bpm, nsst Imaging - Results Chest X-ray: Report Reviewed, Image Reviewed EKG: Report Reviewed, Image Reviewed Other: Report Reviewed, Image Reviewed (tele-nsr, sinus tach no sig arrhythmias) Assessment/Plan 63 year old woman with pmh htn, hld, dmii, admitted with acute appendicitis s/p appendectomy 02/01/19 which was found to be gangrenous and perforated, developed sob and hypoxia postoperatively. CTA chest done showing no PE, no evidence of pulmonary edema, possible infiltrates. pts daughter on phone acts as custodial services manager at pts request. pt states she is feeling better this am. no further sob. no chest pain. only abdominal discomfort. SOB/hypoxia-post op from appendectomy for gangrenous/perforated appendix -uncertain etiology of sob -sob improved today -CTA chest showed no PE, no sig pulm edema -being treated for presumed sepsis -would check Cardiac enzymes -serial ekgs -does not require diuresis at this time -check echo to evaluate LV function/structural heart disease -nuclear stress test done 02/11/2017 showed no ischemia, normal LVEF, of note was done for c/o SOB (listed as indication for test, was referred by Dr. Maldonado)
[2019-02-02] MEDS ORDERED: MUPIROCIN 2% TOPICAL OINTMENT FOR DECOLONIZATION NS SCH ×2 (10:00)
[2019-02-02] MEDS ORDERED: PIPERACILLIN/TAZOBACTAM 3.375 GM VIAL IVPB ONE ×2 (10:08→17:15)
[2019-02-02] MEDS ORDERED: DEXTROSE 5%-WATER - 50 ML IVPB ONE ×2 (10:08→17:15)
[2019-02-02] MEDS ORDERED: PIPERACILLIN/TAZOB 3.375 GM 3.375 GM in DEXTROSE 5%-WATER - 50 ML IVPB ONE (10:15)
[2019-02-02] MEDS: MUPIROCIN 2% TOPICAL OINTMENT FOR DECOLONIZATION NS SCH ×2 (10:16→22:00)
--- NOTE | 2019-02-02 11:14 | PN ---
Progress Note (short form) - Note Progress Note: POD#1 laparoscopic appendectomy for g angenous perforated appendix R/O sepsis secondary to GI source Await c/s Continue jovon
--- NOTE | 2019-02-02 11:16 | PN ---
Progress Note, Physician - Current Medication List Current Medications: Active Medications Acetaminophen (Ofirmev Injection -) 1,000 mg IVPB Q6H PRN PRN Reason: PAIN LEVEL 1-5 Benzocaine/Menthol (Cepacol Lozenge -) 1 each MM PRN PRN PRN Reason: SORE THROAT Chlorhexidine Gluconate (Hibiclens For Decolonization -) 1 applic TP HS LEFTY Sodium Chloride (Normal Saline -) 1,000 mls @ 75 mls/hr IV ASDIR LEFTY Last Admin: 02/01/19 16:45 Dose: 75 mls/hr Piperacillin Sod/Tazobactam (Sod 3.375 gm/ Dextrose) 50 mls @ 100 mls/hr IVPB Q8H-IV LEFTY; Protocol Morphine Sulfate (Morphine Sulfate) 4 mg IVPUSH Q6H PRN PRN Reason: PAIN LEVEL 6-10 Mupirocin (Bactroban Ointment (For Decolonization) -) 1 applic NS BID LEFTY Stop: 02/07/19 09:59 Last Admin: 02/02/19 10:16 Dose: 1 applic Phenol/Menthol (Chloraseptic -) 1 spray MM Q6HPO PRN PRN Reason: SORE THROAT Simethicone (Mylicon -) 80 mg PO Q4H PRN PRN Reason: INDIGESTION - Objective Vital Signs: Vital Signs Temperature 98.2 F 02/02/19 06:00 Pulse Rate 89 02/02/19 08:00 Respiratory Rate 20 02/02/19 08:00 Blood Pressure 118/61 02/02/19 08:00 O2 Sat by Pulse Oximetry (%) 96 02/02/19 05:56 Labs: CBC, BMP 02/02/19 05:30 02/02/19 05:30 INR, PTT INR 1.12 (0.83-1.09) H 02/01/19 11:50 Problem List - Problems (1) Appendicitis, acute Code(s): K35.80 - UNSPECIFIED ACUTE APPENDICITIS Qualifiers: Qualified Code(s): K35.80 - Unspecified acute appendicitis (2) Abdominal pain Code(s): R10.9 - UNSPECIFIED ABDOMINAL PAIN Qualifiers: Qualified Code(s): R10.31 - Right lower quadrant pain (3) Obesity Code(s): E66.9 - OBESITY, UNSPECIFIED (4) HTN (hypertension) Code(s): I10 - ESSENTIAL (PRIMARY) HYPERTENSION Assessment/Plan Surgery: Patient was transferred to ICU last night after an episode of shortness of breath. CTA ruled out pulmonary embolism. DANIA drain draining , serosanguinous fluid. Patient is informed of operative findings. Resume feeding , antibiotics , DVT prophylaxis.
--- NOTE | 2019-02-02 11:59 | CONS ---
INFECTIOUS DISEASE CONSULTATION DATE OF CONSULTATION: 02/02/2019 The patient is a 63-year-old female who was admitted to the hospital on February 01, 2019, with a 3-day history of worsening right lower quadrant abdominal pain, anorexia, and nausea. She was seen in the emergency room where a CAT scan was consistent with acute appendicitis. Her course was complicated by fever and elevated white blood cell count. She was taken to the operating room where a laparoscopic appendectomy was performed. Operative findings included a gangrenous appendix with perforation and localized abscess. Her postoperative course was complicated by labored breathing. CAT scan of the chest was negative for pulmonary embolism. She is presently in the intensive care unit, out of bed in chair. She has some right lower quadrant abdominal discomfort. No reports of recurrent fever or shaking chills. No vomiting. No complaints of chest pain or shortness of breath. PAST MEDICAL HISTORY: Positive for diabetes mellitus, hypertension, hyperlipidemia. ALLERGIES: No known allergies. MEDICATIONS: Include Tylenol, morphine, Zosyn. SOCIAL HISTORY: Patient is . She lives in the community. Nonsmoker, nondrinker. LABORATORY DATA: White count on admission 21.7 with 82 neutrophils, 1 band, 11 lymphocytes, 5 monocytes; hematocrit 32.2; platelet count 300. BUN 13, creatinine 0.6. Urinalysis: White cells 5. Blood and wound cultures are pending. PHYSICAL EXAMINATION: General: She is awake and alert, out of bed to chair, in no acute distress. Vital Signs: Temperature 98.2, T-max 100; blood pressure 118/61; pulse 89, regular; respirations 20 per minute. HEENT: Sclerae anicteric. Heart: Sounds S1, S2. Lungs: Clear. Abdomen: Obese. There is mild right lower quadrant tenderness to palpation. A Bernardo-Flores drain is in place with serosanguineous fluid. Extremities: Edema 1+. Negative Homans sign. IMPRESSION: 1. Postoperative day number 1 laparoscopic appendectomy for gangrenous, perforated appendix. 2. Rule out sepsis secondary to gastrointestinal source. Await culture results. Continue empiric Zosyn. Case discussed with Surgery. Will follow. Thank you for the kind referral. DEBRA MOON M.D. [id number]
--- NOTE | 2019-02-02 15:09 | CON.PULM ---
Consult Consult Specialty:: PULM/CCM Referred by:: VANESSA Reason for Consultation:: SOB - History of Present Illness Chief Complaint: Abdominal pain History of Present Illness: 63 F, HTN, DM, and HPL. Admitted via the ER due to abdominal pain. Found to have an acute appendicitis. On 02/01 under an appendectomy and found the appendix to be gangrenous and perforated. Apparently developed SOB and hypoxia postoperatively. No previous personal or family history of VTE. No travel history or sick contacts. No hemoptysis or night sweats. CTA: no evidence of PE, mild bibasilar atelectasis and minimal effusions. - History Source History Provided By: Family Member, Medical Record Limitations to Obtaining History: Language Barrier - Past Medical History Cardio/Vascular: Yes: HTN, Hyperlipdemia Pulmonary: No: Asthma, Bronchitis, Cancer, COPD, O2 Dependent, Pneumonia, Previously Intubated, Pulmonary Embolus, Pulmonary Fibrosis, Sleep Apnea Endocrine: Yes: Diabetes Mellitus - Alcohol/Substance Use Hx Alcohol Use: No - Smoking History Smoking history: Never smoked - Social History ADL: Independent History of Recent Travel: No Home Medications - Allergies Allergies/Adverse Reactions: Allergies Allergy/AdvReac Type Severity Reaction Status Date / Time No Known Allergies Allergy Verified 02/01/19 10:35 - Home Medications Home Medications: Ambulatory Orders Aspirin [Aspirin EC] 81 mg PO DAILY 02/01/19 Atorvastatin Ca [Lipitor] 40 mg PO HS 02/01/19 Calcium Carb, Citrate/Vit D3 [Calcium + D3 ER Tablet] 1 each PO DAILY 02/01/19 Glimepiride 4 mg PO BID 02/01/19 Lisinopril [Prinivil] 10 mg PO DAILY 02/01/19 Review of Systems - Review of Systems Constitutional: denies: Chills, Fever, Malaise, Night Sweats, Unintentional Wgt. Loss Eyes: reports: No Symptoms HENT: reports: No Symptoms Neck: reports: No Symptoms Cardiovascular: reports: Shortness of Breath. denies: Chest Pain, Edema, Palpitations Respiratory: reports: Cough, SOB, SOB on Exertion. denies: Hemoptysis, Orthopnea, PND, Snoring, Wheezing Gastrointestinal: reports: Abdominal Pain, Indigestion, Nausea. denies: Diarrhea, Melena, Rectal Bleeding, Vomiting, Vomiting Blood Genitourinary: reports: No Symptoms Breasts: reports: No Symptoms Reported Musculoskeletal: reports: No Symptoms Integumentary: reports: No Symptoms Neurological: reports: No Symptoms Endocrine: reports: No Symptoms Hematology/Lymphatic: reports: No Symptoms Psychiatric: reports: No Symptoms Physical Exam Vital Sings: Vital Signs Temperature 98.1 F 02/02/19 14:00 Pulse Rate 91 H 02/02/19 14:00 Respiratory Rate 19 02/02/19 14:00 Blood Pressure 118/61 02/02/19 08:00 O2 Sat by Pulse Oximetry (%) 98 02/02/19 09:00 Constitutional: Yes: No Distress Eyes: Yes: Conjunctiva Clear, EOM Intact HENT: Yes: Atraumatic, Normocephalic Neck: Yes: Supple, Trachea Midline Cardiovascular: Yes: Regular Rate and Rhythm Respiratory: Yes: Diminished, Rhonchi. No: Accessory Muscle Use, Rales, SOB, SOB on Exertion, Stridor, Tachypnea, Wheezes ...Inspection: Yes: WNL ...Clubbing: No Gastrointestinal: Yes: Normal Bowel Sounds, Soft, Tenderness, Other (drain intact ) Renal/: Yes: WNL Musculoskeletal: Yes: WNL Extremities: Yes: WNL Edema: No Peripheral Pulses WNL: Yes Integumentary: Yes: WNL Neurological: Yes: WNL, Alert, Oriented ...Motor Strength: WNL Psychiatric: Yes: WNL, Alert, Oriented Labs: CBC, BMP 02/02/19 05:30 02/02/19 05:30 Imaging - Results Cat Scan: Report Reviewed, Image Reviewed Problem List - Problems (1) Atelectasis Code(s): J98.11 - ATELECTASIS (2) Pleural effusion Code(s): J90 - PLEURAL EFFUSION, NOT ELSEWHERE CLASSIFIED (3) Shortness of breath Code(s): R06.02 - SHORTNESS OF BREATH (4) Abdominal pain Code(s): R10.9 - UNSPECIFIED ABDOMINAL PAIN Qualifiers: Abdominal location: right lower quadrant Qualified Code(s): R10.31 - Right lower quadrant pain (5) Appendicitis, acute Code(s): K35.80 - UNSPECIFIED ACUTE APPENDICITIS Qualifiers: Acute appendicitis type: unspecified acute appendicitis type Qualified Code (s): K35.80 - Unspecified acute appendicitis (6) HTN (hypertension) Code(s): I10 - ESSENTIAL (PRIMARY) HYPERTENSION (7) Obesity Code(s): E66.9 - OBESITY, UNSPECIFIED Assessment/Plan ABX per ID Incentive Spirometry VTE prophylaxis: start LMWH O2 as needed PO when cleared by surgery Pain control IVF Monitor drain outputs Will follow Thank you. Dr Kay
[2019-02-02] MEDS: ENOXAPARIN NA (PORCINE) 40 MG/0.4 ML DISP.SYRIN SQ SCH (15:49)
[2019-02-02] MEDS: SODIUM CHLORIDE 1,000 ML IV SCH (17:21)
[2019-02-02] MEDS ORDERED: morphine SULFATE 4 MG/ML VIAL IVPUSH PRN (17:45)
[2019-02-02] MEDS: ACETAMINOPHEN 1000 MG/100 ML VIAL (NON FORMULARY) IVPB PRN (17:57)
[2019-02-02] MEDS: CHLORHEXIDINE GLUCONATE 4% CLEANSER FOR DECOLONIZATION TP SCH (22:00)
[2019-02-02] MEDS ORDERED: CHLORHEXIDINE GLUCONATE 4% CLEANSER FOR DECOLONIZATION TP SCH ×2 (22:00)
[2019-02-03] MEDS ORDERED: DEXTROSE 5%-WATER - 50 ML IVPB ONE ×3 (01:52→17:12)
[2019-02-03] MEDS ORDERED: PIPERACILLIN/TAZOBACTAM 3.375 GM VIAL IVPB ONE ×3 (01:52→17:12)
[2019-02-03] MEDS: PIPERACILLIN/TAZOB 3.375 GM 3.375 GM in DEXTROSE 5%-WATER - 50 ML IVPB SCH ×3 (01:54→17:36)
[2019-02-03] MEDS: ACETAMINOPHEN 1000 MG/100 ML VIAL (NON FORMULARY) IVPB PRN (06:13)
[2019-02-03 06:55] LABS: HEMATOCRIT 29.6 % (32.4-45.2); MCHC 33.8 g/dl (32.0-36.0); MEAN CELL VOLUME 91.7 fl (80-96); MEAN PLT VOLUME 8.2 fl (7.5-11.1); PLATELET COUNT 329 K/MM3 (134-434); RBC 3.23 M/mm3 (3.60-5.2); RDW 14.6 % (11.6-15.6); WHITE BLOOD COUNT 14.2 K/mm3 (4.0-10.0)
--- NOTE | 2019-02-03 07:01 | PN ---
Progress Note, Physician Chief Complaint: s/p lap appendectomy under general anesthesia History of Present Illness: post op day one, appendix found to be gangrenous, course complicated by post op hypoxia and fever - Current Medication List Current Medications: Active Medications Acetaminophen (Ofirmev Injection -) 1,000 mg IVPB Q6H PRN PRN Reason: PAIN LEVEL 1-5 Last Admin: 02/03/19 06:13 Dose: 1,000 mg Benzocaine/Menthol (Cepacol Lozenge -) 1 each MM PRN PRN PRN Reason: SORE THROAT Chlorhexidine Gluconate (Hibiclens For Decolonization -) 1 applic TP HS [facility] Last Admin: 02/02/19 22:00 Dose: 1 applic Enoxaparin Sodium (Lovenox -) 40 mg SQ DAILY [facility] Last Admin: 02/02/19 15:49 Dose: 40 mg Sodium Chloride (Normal Saline -) 1,000 mls @ 75 mls/hr IV ASDIR [facility] Last Admin: 02/02/19 17:21 Dose: Not Given Piperacillin Sod/Tazobactam (Sod 3.375 gm/ Dextrose) 50 mls @ 100 mls/hr IVPB Q8H-IV LEFTY; Protocol Last Admin: 02/03/19 01:54 Dose: 100 mls/hr Morphine Sulfate (Morphine Sulfate) 4 mg IVPUSH Q6H PRN PRN Reason: PAIN LEVEL 6-10 Mupirocin (Bactroban Ointment (For Decolonization) -) 1 applic NS BID [facility] Stop: 02/07/19 09:59 Last Admin: 02/02/19 22:00 Dose: 1 applic Phenol/Menthol (Chloraseptic -) 1 spray MM Q6HPO PRN PRN Reason: SORE THROAT Simethicone (Mylicon -) 80 mg PO Q4H PRN PRN Reason: INDIGESTION - Objective Vital Signs: Vital Signs Temperature 98.2 F 02/03/19 06:00 Pulse Rate 65 02/03/19 06:00 Respiratory Rate 21 H 02/03/19 06:00 Blood Pressure 127/64 02/03/19 06:00 O2 Sat by Pulse Oximetry (%) 98 02/02/19 21:00 Constitutional: Yes: Well Nourished, No Distress Cardiovascular: Yes: WNL Respiratory: Yes: On Nasal O2 Gastrointestinal: Yes: WNL Labs: INR, PTT INR 1.12 (0.83-1.09) H 02/01/19 11:50 Assessment/Plan Respiratory compromise resolved, patient with no other complaints, dept of anesthesiology will sign off care at this time
[2019-02-03 07:02] LABS: ANION GAP 5 MMOL/L (8-16); BLOOD UREA NITROGEN 17 mg/dL (7-18); CALCIUM 8.4 mg/dL (8.5-10.1); CHLORIDE 109 mmol/L (98-107); CO2 25 mmol/L (21-32); CREATININE 0.6 mg/dL (0.55-1.3); GLUCOSE,RANDOM 154 mg/dL (74-106); POTASSIUM 3.8 mmol/L (3.5-5.1); SODIUM 140 mmol/L (136-145)
[2019-02-03] MEDS: MUPIROCIN 2% TOPICAL OINTMENT FOR DECOLONIZATION NS SCH ×2 (09:25→22:24)
[2019-02-03] MEDS: ENOXAPARIN NA (PORCINE) 40 MG/0.4 ML DISP.SYRIN SQ SCH (09:29)
--- NOTE | 2019-02-03 09:55 | PN ---
Progress Note, Physician History of Present Illness: had upper abdominal fullness which has resolved - Current Medication List Current Medications: Active Medications Acetaminophen (Ofirmev Injection -) 1,000 mg IVPB Q6H PRN PRN Reason: PAIN LEVEL 1-5 Last Admin: 02/03/19 06:13 Dose: 1,000 mg Benzocaine/Menthol (Cepacol Lozenge -) 1 each MM PRN PRN PRN Reason: SORE THROAT Chlorhexidine Gluconate (Hibiclens For Decolonization -) 1 applic TP HS [facility] Last Admin: 02/02/19 22:00 Dose: 1 applic Enoxaparin Sodium (Lovenox -) 40 mg SQ DAILY [facility] Last Admin: 02/03/19 09:29 Dose: 40 mg Sodium Chloride (Normal Saline -) 1,000 mls @ 75 mls/hr IV ASDIR [facility] Last Admin: 02/02/19 17:21 Dose: Not Given Piperacillin Sod/Tazobactam (Sod 3.375 gm/ Dextrose) 50 mls @ 100 mls/hr IVPB Q8H-IV LEFTY; Protocol Last Admin: 02/03/19 09:29 Dose: 100 mls/hr Morphine Sulfate (Morphine Sulfate) 4 mg IVPUSH Q6H PRN PRN Reason: PAIN LEVEL 6-10 Mupirocin (Bactroban Ointment (For Decolonization) -) 1 applic NS BID [facility] Stop: 02/07/19 09:59 Last Admin: 02/03/19 09:25 Dose: Not Given Phenol/Menthol (Chloraseptic -) 1 spray MM Q6HPO PRN PRN Reason: SORE THROAT Simethicone (Mylicon -) 80 mg PO Q4H PRN PRN Reason: INDIGESTION - Objective Vital Signs: Vital Signs Temperature 98.2 F 02/03/19 06:00 Pulse Rate 65 02/03/19 06:00 Respiratory Rate 21 H 02/03/19 06:00 Blood Pressure 127/64 02/03/19 06:00 O2 Sat by Pulse Oximetry (%) 98 02/02/19 21:00 Cardiovascular: Yes: Regular Rate and Rhythm Respiratory: Yes: Regular, CTA Bilaterally Gastrointestinal: Yes: Normal Bowel Sounds, Soft, Distention, Tenderness Labs: CBC, BMP 02/03/19 05:30 02/03/19 05:30 INR, PTT INR 1.12 (0.83-1.09) H 02/01/19 11:50 Problem List - Problems (1) Perforated appendicitis Assessment/Plan: -IV ABX PER ID DIET AND DRAIN PER SURGERY IVF Code(s): K35.32 - ACUTE APPENDICITIS WITH PERF AND LOC PERITONITIS, W/O ABSCS (2) Epigastric pain Assessment/Plan: -RESOLVED -CE,EKG AND CXR MONITOR Code(s): R10.13 - EPIGASTRIC PAIN (3) HTN (hypertension) Code(s): I10 - ESSENTIAL (PRIMARY) HYPERTENSION (4) Shortness of breath Assessment/Plan: -RESOLVED MONITOR Code(s): R06.02 - SHORTNESS OF BREATH
--- NOTE | 2019-02-03 10:29 | EKG ---
Test Reason : Blood Pressure : / mmHG Vent. Rate : 055 BPM Atrial Rate : 055 BPM P-R Int : 134 ms QRS Dur : 080 ms QT Int : 416 ms P-R-T Axes : 059 055 042 degrees QTc Int : 397 ms SINUS BRADYCARDIA OTHERWISE NORMAL ECG WHEN COMPARED WITH ECG OF 01-FEB-2019 11:41, VENT. RATE HAS DECREASED BY 37 BPM Confirmed by MARCK ERNST, TATYANA ([id number]) on 02/03/2019 10:29:22 AM Referred By: JACIEL SHAH DR Confirmed By:TATYANA ACHARYA MD
--- NOTE | 2019-02-03 12:06 | PATH ---
Surgical Pathology Report Patient Name: MARIA GUADALUPE KEITA [facility]. Rec. #: [id number] /Age/Gender: 1955 (Age: 63) / F Account: [id number] Location: EMERGENCY ROOM Taken: 02/01/2019 Received: 02/02/2019 Reported: 02/03/2019 Physicians: Celestina Cordoba M.D. PHYSICIAN EMERGENCY DEPT Specimen(s) Received APPENDIX Clinical History Acute gangrenous appendicitis with abscess Final Diagnosis APPENDIX, APPENDECTOMY: ACUTE AND GANGRENOUS APPENDICITIS WITH PERFORATION. Electronically Signed Will Pyle M.D. Gross Description Received in formalin, labeled "appendix," is a 4.5 cm. in length vermiform appendix with a stapled margin of resection and minimal attached fat. The serosa is koo-lujan and focally gangrenous with attached exudate. Sectioning reveals a focally gangrenous lumen. The wall of the appendix averages 0.1 cm. in thickness. Supervisor Dog License Officer sections are submitted in one cassette. /02/02/2019 merged with [facility]02/02/2019
--- NOTE | 2019-02-03 12:15 | PN ---
Progress Note, Physician - Current Medication List Current Medications: Active Medications Acetaminophen (Ofirmev Injection -) 1,000 mg IVPB Q6H PRN PRN Reason: PAIN LEVEL 1-5 Last Admin: 02/03/19 06:13 Dose: 1,000 mg Benzocaine/Menthol (Cepacol Lozenge -) 1 each MM PRN PRN PRN Reason: SORE THROAT Chlorhexidine Gluconate (Hibiclens For Decolonization -) 1 applic TP HS [facility] Last Admin: 02/02/19 22:00 Dose: 1 applic Enoxaparin Sodium (Lovenox -) 40 mg SQ DAILY [facility] Last Admin: 02/03/19 09:29 Dose: 40 mg Sodium Chloride (Normal Saline -) 1,000 mls @ 75 mls/hr IV ASDIR [facility] Last Admin: 02/02/19 17:21 Dose: Not Given Piperacillin Sod/Tazobactam (Sod 3.375 gm/ Dextrose) 50 mls @ 100 mls/hr IVPB Q8H-IV LEFTY; Protocol Last Admin: 02/03/19 09:29 Dose: 100 mls/hr Morphine Sulfate (Morphine Sulfate) 4 mg IVPUSH Q6H PRN PRN Reason: PAIN LEVEL 6-10 Mupirocin (Bactroban Ointment (For Decolonization) -) 1 applic NS BID [facility] Stop: 02/07/19 09:59 Last Admin: 02/03/19 09:25 Dose: Not Given Phenol/Menthol (Chloraseptic -) 1 spray MM Q6HPO PRN PRN Reason: SORE THROAT Simethicone (Mylicon -) 80 mg PO Q4H PRN PRN Reason: INDIGESTION - Objective Vital Signs: Vital Signs Temperature 98.4 F 02/03/19 09:59 Pulse Rate 65 02/03/19 11:00 Respiratory Rate 19 02/03/19 11:00 Blood Pressure 136/73 02/03/19 11:00 O2 Sat by Pulse Oximetry (%) 98 02/03/19 09:59 Labs: CBC, BMP 02/03/19 05:30 02/03/19 05:30 INR, PTT INR 1.12 (0.83-1.09) H 02/01/19 11:50 Problem List - Problems (1) Appendicitis, acute Code(s): K35.80 - UNSPECIFIED ACUTE APPENDICITIS Qualifiers: Acute appendicitis type: unspecified acute appendicitis type Qualified Code (s): K35.80 - Unspecified acute appendicitis (2) Abdominal pain Code(s): R10.9 - UNSPECIFIED ABDOMINAL PAIN Qualifiers: Abdominal location: right lower quadrant Qualified Code(s): R10.31 - Right lower quadrant pain (3) Obesity Code(s): E66.9 - OBESITY, UNSPECIFIED (4) HTN (hypertension) Code(s): I10 - ESSENTIAL (PRIMARY) HYPERTENSION Assessment/Plan Surgery; Patient is afebrile. C/O diarrhea. Abdomen is soft , DANIA drain : serosanguinous drainage , [place] [id number]. Culture from appendix : Beta hemolytic strep Continue antibiotics. Resume diet
--- NOTE | 2019-02-03 13:22 | PN ---
Progress Note (short form) - Note Progress Note: PULMONARY Denies shortness of breath. Mild chest discomfort. No fevers or chills. Tolerating PO. Vital Signs Period Temp Pulse Resp BP Sys/Byrne Pulse Ox Last 24 Hr 98.1 F-98.8 F 60-91 14-24 109-136/55-84 98-98 Gen: NAD in chair Heart: RRR Lung: decreased breath sounds at the bases Abd: soft, nontender Ext: no edema CBC, BMP 02/03/19 05:30 02/03/19 05:30 Active Medications Acetaminophen (Ofirmev Injection -) 1,000 mg IVPB Q6H PRN PRN Reason: PAIN LEVEL 1-5 Last Admin: 02/03/19 06:13 Dose: 1,000 mg Benzocaine/Menthol (Cepacol Lozenge -) 1 each MM PRN PRN PRN Reason: SORE THROAT Chlorhexidine Gluconate (Hibiclens For Decolonization -) 1 applic TP HS [facility] Last Admin: 02/02/19 22:00 Dose: 1 applic Enoxaparin Sodium (Lovenox -) 40 mg SQ DAILY [facility] Last Admin: 02/03/19 09:29 Dose: 40 mg Sodium Chloride (Normal Saline -) 1,000 mls @ 75 mls/hr IV ASDIR LEFTY Last Admin: 02/02/19 17:21 Dose: Not Given Piperacillin Sod/Tazobactam (Sod 3.375 gm/ Dextrose) 50 mls @ 100 mls/hr IVPB Q8H-IV LEFTY; Protocol Last Admin: 02/03/19 09:29 Dose: 100 mls/hr Morphine Sulfate (Morphine Sulfate) 4 mg IVPUSH Q6H PRN PRN Reason: PAIN LEVEL 6-10 Mupirocin (Bactroban Ointment (For Decolonization) -) 1 applic NS BID [facility] Stop: 02/07/19 09:59 Last Admin: 02/03/19 09:25 Dose: Not Given Phenol/Menthol (Chloraseptic -) 1 spray MM Q6HPO PRN PRN Reason: SORE THROAT Simethicone (Mylicon -) 80 mg PO Q4H PRN PRN Reason: INDIGESTION A/P Acute Perforated Gangrenous Appendicitis s/p Laparoscopic Appendectomy Post Op Hypoxia Atelectasis HTN DM Hypercholesterolemia - continue antibiotics per ID - pain control - incentive spirometry - PO as tolerated - DVT prophylaxis
--- NOTE | 2019-02-03 16:08 | PN ---
Progress Note, Physician Chief Complaint: Presently comfortable History of Present Illness: This is a 63 year old woman with pmh htn, hld, dmii, admitted with acute appendicitis s/p appendectomy 02/01/19 which was found to be gangrenous and perforated, developed sob and hypoxia postoperatively. CTA chest done showing no PE, no evidence of pulmonary edema, possible infiltrates. Pt seen and examined today in nad. pts daughter on phone acts as bacon skin lifter at pts request. pt states she is feeling better this am. no further sob. no chest pain. only abdominal discomfort. - Current Medication List Current Medications: Active Medications Acetaminophen (Ofirmev Injection -) 1,000 mg IVPB Q6H PRN PRN Reason: PAIN LEVEL 1-5 Last Admin: 02/03/19 06:13 Dose: 1,000 mg Benzocaine/Menthol (Cepacol Lozenge -) 1 each MM PRN PRN PRN Reason: SORE THROAT Chlorhexidine Gluconate (Hibiclens For Decolonization -) 1 applic TP HS [facility] Last Admin: 02/02/19 22:00 Dose: 1 applic Enoxaparin Sodium (Lovenox -) 40 mg SQ DAILY [facility] Last Admin: 02/03/19 09:29 Dose: 40 mg Sodium Chloride (Normal Saline -) 1,000 mls @ 75 mls/hr IV ASDIR [facility] Last Admin: 02/02/19 17:21 Dose: Not Given Piperacillin Sod/Tazobactam (Sod 3.375 gm/ Dextrose) 50 mls @ 100 mls/hr IVPB Q8H-IV LEFTY; Protocol Last Admin: 02/03/19 09:29 Dose: 100 mls/hr Morphine Sulfate (Morphine Sulfate) 4 mg IVPUSH Q6H PRN PRN Reason: PAIN LEVEL 6-10 Mupirocin (Bactroban Ointment (For Decolonization) -) 1 applic NS BID [facility] Stop: 02/07/19 09:59 Last Admin: 02/03/19 09:25 Dose: Not Given Phenol/Menthol (Chloraseptic -) 1 spray MM Q6HPO PRN PRN Reason: SORE THROAT Simethicone (Mylicon -) 80 mg PO Q4H PRN PRN Reason: INDIGESTION - Objective Vital Signs: Vital Signs Temperature 97.9 F 02/03/19 14:02 Pulse Rate 66 02/03/19 14:02 Respiratory Rate 19 02/03/19 14:02 Blood Pressure 143/57 L 02/03/19 14:02 O2 Sat by Pulse Oximetry (%) 98 02/03/19 09:59 Constitutional: Yes: Well Nourished Eyes: Yes: WNL HENT: Yes: WNL Neck: Yes: WNL Cardiovascular: Yes: Regular Rate and Rhythm (NL S1S2. No MRHG.) Respiratory: Yes: CTA Bilaterally Gastrointestinal: Yes: Soft Edema: No Neurological: Yes: Alert, Oriented Labs: CBC, BMP 02/03/19 05:30 02/03/19 05:30 INR, PTT INR 1.12 (0.83-1.09) H 02/01/19 11:50 Assessment/Plan 63 year old woman with pmh htn, hld, dmii, admitted with acute appendicitis s/p appendectomy 02/01/19 which was found to be gangrenous and perforated, developed sob and hypoxia postoperatively. CTA chest done showing no PE, no evidence of pulmonary edema, possible infiltrates. pts daughter on phone acts as bacon skin lifter at pts request. pt states she is feeling better this am. no further sob. no chest pain. only abdominal discomfort. SOB/hypoxia-post op from appendectomy for gangrenous/perforated appendix -uncertain etiology of sob -sob improved today -CTA chest showed no PE, no sig pulm edema -being treated for presumed sepsis -Troponin negative -does not require diuresis at this time -check echo to evaluate LV function/structural heart disease -nuclear stress test done 02/11/2017 showed no ischemia, normal LVEF, of note was done for c/o SOB (listed as indication for test, was referred by Dr. Maldonado)
[2019-02-03] MEDS: SODIUM CHLORIDE 1,000 ML IV SCH (17:35)
[2019-02-03] MEDS: CHLORHEXIDINE GLUCONATE 4% CLEANSER FOR DECOLONIZATION TP SCH (22:24)
[2019-02-04] MEDS: ACETAMINOPHEN 1000 MG/100 ML VIAL (NON FORMULARY) IVPB PRN (00:16)
[2019-02-04] MEDS ORDERED: PT OWN MED DRAWER 7, Y5N ONE (02:44)
[2019-02-04] MEDS: PIPERACILLIN/TAZOB 3.375 GM 3.375 GM in DEXTROSE 5%-WATER - 50 ML IVPB SCH ×3 (02:50→17:00)
[2019-02-04] MEDS ORDERED: PIPERACILLIN/TAZOBACTAM 3.375 GM VIAL IVPB ONE ×3 (03:07→16:35)
[2019-02-04] MEDS ORDERED: DEXTROSE 5%-WATER - 50 ML IVPB ONE ×3 (03:08→16:36)
[2019-02-04] MEDS: ENOXAPARIN NA (PORCINE) 40 MG/0.4 ML DISP.SYRIN SQ SCH (09:55)
--- NOTE | 2019-02-04 11:15 | PN ---
Progress Note, Physician Chief Complaint: patient seen and examiend complaining mild abdominal pain wbc trending down on iv abx - Current Medication List Current Medications: Active Medications Acetaminophen (Ofirmev Injection -) 1,000 mg IVPB Q6H PRN PRN Reason: PAIN LEVEL 1-5 Last Admin: 02/04/19 00:16 Dose: 1,000 mg Benzocaine/Menthol (Cepacol Lozenge -) 1 each MM PRN PRN PRN Reason: SORE THROAT Chlorhexidine Gluconate (Hibiclens For Decolonization -) 1 applic TP HS [facility] Last Admin: 02/03/19 22:24 Dose: 1 applic Enoxaparin Sodium (Lovenox -) 40 mg SQ DAILY [facility] Last Admin: 02/04/19 09:55 Dose: 40 mg Sodium Chloride (Normal Saline -) 1,000 mls @ 75 mls/hr IV ASDIR [facility] Last Admin: 02/03/19 17:35 Dose: Not Given Piperacillin Sod/Tazobactam (Sod 3.375 gm/ Dextrose) 50 mls @ 100 mls/hr IVPB Q8H-IV LEFTY; Protocol Last Admin: 02/04/19 09:55 Dose: 100 mls/hr Morphine Sulfate (Morphine Sulfate) 4 mg IVPUSH Q6H PRN PRN Reason: PAIN LEVEL 6-10 Mupirocin (Bactroban Ointment (For Decolonization) -) 1 applic NS BID [facility] Stop: 02/07/19 09:59 Last Admin: 02/03/19 22:24 Dose: 1 applic Phenol/Menthol (Chloraseptic -) 1 spray MM Q6HPO PRN PRN Reason: SORE THROAT Simethicone (Mylicon -) 80 mg PO Q4H PRN PRN Reason: INDIGESTION - Objective Vital Signs: Vital Signs Temperature 98 F 02/04/19 08:00 Pulse Rate 74 02/04/19 10:00 Respiratory Rate 18 02/04/19 10:00 Blood Pressure 146/68 02/04/19 10:00 O2 Sat by Pulse Oximetry (%) 97 02/03/19 20:30 Constitutional: Yes: Calm Cardiovascular: Yes: Regular Rate and Rhythm, S1, S2 Respiratory: Yes: CTA Bilaterally Gastrointestinal: Yes: Normal Bowel Sounds, Soft, Other (DANIA drain serosnginous drainage soft) Edema: No Labs: CBC, BMP 02/03/19 05:30 02/03/19 05:30 INR, PTT INR 1.12 (0.83-1.09) H 02/01/19 11:50 Problem List - Problems (1) Appendicitis, acute Assessment/Plan: s/p laproscopic appendectomy- acute gangrenous perforated appendicitis now on regular diet iv abx wbc trending down DANIA drain in place surgery on board pain control Code(s): K35.80 - UNSPECIFIED ACUTE APPENDICITIS Qualifiers: Acute appendicitis type: unspecified acute appendicitis type Qualified Code (s): K35.80 - Unspecified acute appendicitis (2) HTN (hypertension) Assessment/Plan: BP noted in 140 systolic restart prinivil Code(s): I10 - ESSENTIAL (PRIMARY) HYPERTENSION (3) Fever Assessment/Plan: leukocytosis trending down no more fever ID iv abx Microbiology 02/01/19 20:04 Appendix Gram Stain - Final 02/01/19 20:04 Appendix Wound Culture - Final Streptococcus Constellatus Code(s): R50.9 - FEVER, UNSPECIFIED
[2019-02-04 12:05] LABS: BASO % 0.8 % (0-2.0); EOS % 4.2 % (0-4.5); HEMOGLOBIN 10.3 GM/dL (10.7-15.3); LYMPH % 31.8 % (8-40); MCH 30.8 pg (25.7-33.7); MCHC 33.3 g/dl (32.0-36.0); MEAN CELL VOLUME 92.5 fl (80-96); MEAN PLT VOLUME 7.8 fl (7.5-11.1); MONO % 7.2 % (3.8-10.2); PLATELET COUNT 363 K/MM3 (134-434); RBC 3.35 M/mm3 (3.60-5.2); RDW 14.5 % (11.6-15.6); WHITE BLOOD COUNT 9.9 K/mm3 (4.0-10.0)
[2019-02-04 12:22] LABS: ALBUMIN 2.4 g/dl (3.4-5.0); ALK PHOS 154 U/L (45-117); ANION GAP 5 MMOL/L (8-16); BILIRUBIN,TOTAL 0.5 mg/dL (0.2-1); BLOOD UREA NITROGEN 17 mg/dL (7-18); CALCIUM 8.3 mg/dL (8.5-10.1); CHLORIDE 107 mmol/L (98-107); CO2 28 mmol/L (21-32); CREATININE 0.7 mg/dL (0.55-1.3); GLUCOSE,RANDOM 155 mg/dL (74-106); POTASSIUM 3.8 mmol/L (3.5-5.1); SGOT/AST 73 U/L (15-37); SGPT/ALT 71 U/L (13-61); SODIUM 140 mmol/L (136-145); TOT PROT 5.4 g/dl (6.4-8.2)
--- NOTE | 2019-02-04 12:32 | PN ---
Progress Note (short form) - Note Progress Note: Denies shortness of breath. No fevers or chills. Tolerating PO. Intake & Output 02/01/19 02/02/19 02/03/19 02/04/19 23:59 23:59 23:59 23:59 Intake Total 3800 2700 2205 1200 Output Total 185 70 10 41 Balance 3615 2630 2195 1159 Weight 165 lb 5.547 oz 165 lb 5.547 oz Last Vital Signs Temp Pulse Resp BP Pulse Ox 98 F 74 18 146/68 97 02/04/19 08:00 02/04/19 10:00 02/04/19 10:00 02/04/19 10:00 02/03/19 20:30 Active Medications Acetaminophen (Ofirmev Injection -) 1,000 mg IVPB Q6H PRN PRN Reason: PAIN LEVEL 1-5 Last Admin: 02/04/19 00:16 Dose: 1,000 mg Benzocaine/Menthol (Cepacol Lozenge -) 1 each MM PRN PRN PRN Reason: SORE THROAT Chlorhexidine Gluconate (Hibiclens For Decolonization -) 1 applic TP HS [facility] Last Admin: 02/03/19 22:24 Dose: 1 applic Enoxaparin Sodium (Lovenox -) 40 mg SQ DAILY [facility] Last Admin: 02/04/19 09:55 Dose: 40 mg Sodium Chloride (Normal Saline -) 1,000 mls @ 75 mls/hr IV ASDIR LEFTY Last Admin: 02/03/19 17:35 Dose: Not Given Piperacillin Sod/Tazobactam (Sod 3.375 gm/ Dextrose) 50 mls @ 100 mls/hr IVPB Q8H-IV LEFTY; Protocol Last Admin: 02/04/19 09:55 Dose: 100 mls/hr Lisinopril (Prinivil) 10 mg PO DAILY [facility] Morphine Sulfate (Morphine Sulfate) 4 mg IVPUSH Q6H PRN PRN Reason: PAIN LEVEL 6-10 Mupirocin (Bactroban Ointment (For Decolonization) -) 1 applic NS BID [facility] Stop: 02/07/19 09:59 Last Admin: 02/03/19 22:24 Dose: 1 applic Phenol/Menthol (Chloraseptic -) 1 spray MM Q6HPO PRN PRN Reason: SORE THROAT Simethicone (Mylicon -) 80 mg PO Q4H PRN PRN Reason: INDIGESTION Gen: NAD in chair Heart: RRR Lung: decreased breath sounds at the bases Abd: soft, nontender Ext: no edema Laboratory Results - last 24 hr 02/03/19 02/04/19 02/04/19 17:06 00:57 11:36 WBC 9.9 RBC 3.35 L Hgb 10.3 L Hct 31.0 L MCV 92.5 MCH 30.8 MCHC 33.3 RDW 14.5 Plt Count 363 MPV 7.8 Absolute Neuts (auto) 5.6 Neutrophils % 56.0 D Lymphocytes % 31.8 D Monocytes % 7.2 D Eosinophils % 4.2 D Basophils % 0.8 D Nucleated RBC % 0 Sodium Potassium Chloride Carbon Dioxide Anion Gap BUN Creatinine Creat Clearance w eGFR POC Glucometer 130 144 Random Glucose Calcium Total Bilirubin AST ALT Alkaline Phosphatase Total Protein Albumin 02/04/19 11:36 WBC RBC Hgb Hct MCV MCH MCHC RDW Plt Count MPV Absolute Neuts (auto) Neutrophils % Lymphocytes % Monocytes % Eosinophils % Basophils % Nucleated RBC % Sodium 140 Potassium 3.8 Chloride 107 Carbon Dioxide 28 Anion Gap 5 L BUN 17 Creatinine 0.7 Creat Clearance w eGFR 83.98 POC Glucometer Random Glucose 155 H Calcium 8.3 L Total Bilirubin 0.5 AST 73 H ALT 71 H Alkaline Phosphatase 154 H Total Protein 5.4 L Albumin 2.4 L IMP: Acute Perforated Gangrenous Appendicitis s/p Laparoscopic Appendectomy Post Op Hypoxia Atelectasis HTN DM Hypercholesterolemia - continue antibiotics per ID - pain control - incentive spirometry - PO as tolerated - DVT prophylaxis Dr Kay Problem List - Problems (1) Atelectasis Code(s): J98.11 - ATELECTASIS (2) Pleural effusion Code(s): J90 - PLEURAL EFFUSION, NOT ELSEWHERE CLASSIFIED (3) Shortness of breath Code(s): R06.02 - SHORTNESS OF BREATH (4) Abdominal pain Code(s): R10.9 - UNSPECIFIED ABDOMINAL PAIN Qualifiers: Abdominal location: right lower quadrant Qualified Code(s): R10.31 - Right lower quadrant pain (5) Appendicitis, acute Code(s): K35.80 - UNSPECIFIED ACUTE APPENDICITIS Qualifiers: Acute appendicitis type: unspecified acute appendicitis type Qualified Code (s): K35.80 - Unspecified acute appendicitis (6) HTN (hypertension) Code(s): I10 - ESSENTIAL (PRIMARY) HYPERTENSION (7) Obesity Code(s): E66.9 - OBESITY, UNSPECIFIED
--- NOTE | 2019-02-04 16:25 | PN ---
Progress Note, Physician - Current Medication List Current Medications: Active Medications Acetaminophen (Ofirmev Injection -) 1,000 mg IVPB Q6H PRN PRN Reason: PAIN LEVEL 1-5 Last Admin: 02/04/19 00:16 Dose: 1,000 mg Benzocaine/Menthol (Cepacol Lozenge -) 1 each MM PRN PRN PRN Reason: SORE THROAT Chlorhexidine Gluconate (Hibiclens For Decolonization -) 1 applic TP HS [facility] Last Admin: 02/03/19 22:24 Dose: 1 applic Enoxaparin Sodium (Lovenox -) 40 mg SQ DAILY [facility] Last Admin: 02/04/19 09:55 Dose: 40 mg Sodium Chloride (Normal Saline -) 1,000 mls @ 75 mls/hr IV ASDIR [facility] Last Admin: 02/03/19 17:35 Dose: Not Given Piperacillin Sod/Tazobactam (Sod 3.375 gm/ Dextrose) 50 mls @ 100 mls/hr IVPB Q8H-IV LEFTY; Protocol Last Admin: 02/04/19 09:55 Dose: 100 mls/hr Lisinopril (Prinivil) 10 mg PO DAILY [facility] Morphine Sulfate (Morphine Sulfate) 4 mg IVPUSH Q6H PRN PRN Reason: PAIN LEVEL 6-10 Mupirocin (Bactroban Ointment (For Decolonization) -) 1 applic NS BID [facility] Stop: 02/07/19 09:59 Last Admin: 02/03/19 22:24 Dose: 1 applic Phenol/Menthol (Chloraseptic -) 1 spray MM Q6HPO PRN PRN Reason: SORE THROAT Simethicone (Mylicon -) 80 mg PO Q4H PRN PRN Reason: INDIGESTION - Objective Vital Signs: Vital Signs Temperature 98.5 F 02/04/19 14:00 Pulse Rate 76 02/04/19 14:00 Respiratory Rate 18 02/04/19 14:00 Blood Pressure 135/69 02/04/19 14:00 O2 Sat by Pulse Oximetry (%) 97 02/03/19 20:30 Labs: CBC, BMP 02/04/19 11:36 02/04/19 11:36 INR, PTT INR 1.12 (0.83-1.09) H 02/01/19 11:50 Problem List - Problems (1) Appendicitis, acute Code(s): K35.80 - UNSPECIFIED ACUTE APPENDICITIS Qualifiers: Acute appendicitis type: unspecified acute appendicitis type Qualified Code (s): K35.80 - Unspecified acute appendicitis (2) Abdominal pain Code(s): R10.9 - UNSPECIFIED ABDOMINAL PAIN Qualifiers: Abdominal location: right lower quadrant Qualified Code(s): R10.31 - Right lower quadrant pain (3) Obesity Code(s): E66.9 - OBESITY, UNSPECIFIED (4) HTN (hypertension) Code(s): I10 - ESSENTIAL (PRIMARY) HYPERTENSION Assessment/Plan Surgery: Patient is afebrile. She has some pain in right lower quadrant. Abdomen is minimally tender in right lower quadrant. WBC is normal. Drain draining serous fluid, 40 ml. Pathology : Acute and gangrenous and perforated appendicitis. Continue antibiotics. Tolerating feeds.
[2019-02-04] MEDS: SODIUM CHLORIDE 1,000 ML IV SCH (17:00)
[2019-02-04] MEDS: MUPIROCIN 2% TOPICAL OINTMENT FOR DECOLONIZATION NS SCH (17:07)
[2019-02-05] MEDS: MUPIROCIN 2% TOPICAL OINTMENT FOR DECOLONIZATION NS SCH ×3 (01:09→22:35)
[2019-02-05] MEDS: CHLORHEXIDINE GLUCONATE 4% CLEANSER FOR DECOLONIZATION TP SCH ×2 (01:09→22:34)
[2019-02-05] MEDS ORDERED: PIPERACILLIN/TAZOBACTAM 3.375 GM VIAL IVPB ONE ×3 (01:11→17:41)
[2019-02-05] MEDS ORDERED: DEXTROSE 5%-WATER - 50 ML IVPB ONE ×3 (01:12→17:42)
[2019-02-05] MEDS: PIPERACILLIN/TAZOB 3.375 GM 3.375 GM in DEXTROSE 5%-WATER - 50 ML IVPB SCH ×3 (01:13→17:48)
--- NOTE | 2019-02-05 08:28 | PN ---
Progress Note, Physician - Current Medication List Current Medications: Active Medications Acetaminophen (Ofirmev Injection -) 1,000 mg IVPB Q6H PRN PRN Reason: PAIN LEVEL 1-5 Last Admin: 02/04/19 00:16 Dose: 1,000 mg Benzocaine/Menthol (Cepacol Lozenge -) 1 each MM PRN PRN PRN Reason: SORE THROAT Chlorhexidine Gluconate (Hibiclens For Decolonization -) 1 applic TP HS [facility] Last Admin: 02/05/19 01:09 Dose: 1 applic Enoxaparin Sodium (Lovenox -) 40 mg SQ DAILY [facility] Last Admin: 02/04/19 09:55 Dose: 40 mg Sodium Chloride (Normal Saline -) 1,000 mls @ 75 mls/hr IV ASDIR [facility] Last Admin: 02/04/19 17:00 Dose: Not Given Piperacillin Sod/Tazobactam (Sod 3.375 gm/ Dextrose) 50 mls @ 100 mls/hr IVPB Q8H-IV LEFTY; Protocol Last Admin: 02/05/19 01:13 Dose: 100 mls/hr Lisinopril (Prinivil) 10 mg PO DAILY [facility] Morphine Sulfate (Morphine Sulfate) 4 mg IVPUSH Q6H PRN PRN Reason: PAIN LEVEL 6-10 Mupirocin (Bactroban Ointment (For Decolonization) -) 1 applic NS BID [facility] Stop: 02/07/19 09:59 Last Admin: 02/05/19 01:09 Dose: 1 applic Phenol/Menthol (Chloraseptic -) 1 spray MM Q6HPO PRN PRN Reason: SORE THROAT Simethicone (Mylicon -) 80 mg PO Q4H PRN PRN Reason: INDIGESTION - Objective Vital Signs: Vital Signs Temperature 98.7 F 02/05/19 02:00 Pulse Rate 75 02/05/19 02:00 Respiratory Rate 18 02/05/19 06:00 Blood Pressure 144/71 02/05/19 06:00 O2 Sat by Pulse Oximetry (%) 97 02/03/19 20:30 Cardiovascular: Yes: Regular Rate and Rhythm Respiratory: Yes: Regular, CTA Bilaterally Gastrointestinal: Yes: Normal Bowel Sounds, Soft, Other (danny drain). No: Tenderness Labs: CBC, BMP 02/04/19 11:36 02/04/19 11:36 INR, PTT INR 1.12 (0.83-1.09) H 02/01/19 11:50 Problem List - Problems (1) Perforated appendicitis Code(s): K35.32 - ACUTE APPENDICITIS WITH PERF AND LOC PERITONITIS, W/O ABSCS (2) Epigastric pain Code(s): R10.13 - EPIGASTRIC PAIN (3) HTN (hypertension) Code(s): I10 - ESSENTIAL (PRIMARY) HYPERTENSION (4) Shortness of breath Code(s): R06.02 - SHORTNESS OF BREATH Assessment/Plan - Problems (1) Appendicitis, acute Assessment/Plan: s/p laproscopic appendectomy- acute gangrenous perforated appendicitis now on regular diet iv abx wbc trending down DANNY drain in place surgery on board pain control Code(s): K35.80 - UNSPECIFIED ACUTE APPENDICITIS Qualifiers: Acute appendicitis type: unspecified acute appendicitis type Qualified Code (s): K35.80 - Unspecified acute appendicitis (2) HTN (hypertension) Assessment/Plan: BP noted in 140 systolic restart prinivil Code(s): I10 - ESSENTIAL (PRIMARY) HYPERTENSION (3) Fever Assessment/Plan: leukocytosis trending down no more fever ID iv abx Microbiology 02/01/19 20:04 Appendix Gram Stain - Final 02/01/19 20:04 Appendix Wound Culture - Final Streptococcus Constellatus Code(s): R50.9 - FEVER, UNSPECIFIED
[2019-02-05] MEDS ORDERED: PT OWN MED DRAWER 7, Y5N ONE (09:36)
[2019-02-05] MEDS: LISINOPRIL 10 MG TABLET (FP) PO SCH (09:47)
[2019-02-05] MEDS: ENOXAPARIN NA (PORCINE) 40 MG/0.4 ML DISP.SYRIN SQ SCH (09:47)
--- NOTE | 2019-02-05 10:38 | PN ---
Progress Note, Physician History of Present Illness: AWAKE, ALERT SUPINE IN BED NO C/O ABDOMINAL PAIN AT REST NO N/V TOLERATED SOLID DIET AFEBRILE WBC NOW WNL - Current Medication List Current Medications: Active Medications Acetaminophen (Ofirmev Injection -) 1,000 mg IVPB Q6H PRN PRN Reason: PAIN LEVEL 1-5 Last Admin: 02/04/19 00:16 Dose: 1,000 mg Benzocaine/Menthol (Cepacol Lozenge -) 1 each MM PRN PRN PRN Reason: SORE THROAT Chlorhexidine Gluconate (Hibiclens For Decolonization -) 1 applic TP HS [facility] Last Admin: 02/05/19 01:09 Dose: 1 applic Enoxaparin Sodium (Lovenox -) 40 mg SQ DAILY [facility] Last Admin: 02/05/19 09:47 Dose: 40 mg Sodium Chloride (Normal Saline -) 1,000 mls @ 75 mls/hr IV ASDIR [facility] Last Admin: 02/04/19 17:00 Dose: Not Given Piperacillin Sod/Tazobactam (Sod 3.375 gm/ Dextrose) 50 mls @ 100 mls/hr IVPB Q8H-IV LEFTY; Protocol Last Admin: 02/05/19 09:47 Dose: 100 mls/hr Lisinopril (Prinivil) 10 mg PO DAILY [facility] Last Admin: 02/05/19 09:47 Dose: 10 mg Morphine Sulfate (Morphine Sulfate) 4 mg IVPUSH Q6H PRN PRN Reason: PAIN LEVEL 6-10 Mupirocin (Bactroban Ointment (For Decolonization) -) 1 applic NS BID [facility] Stop: 02/07/19 09:59 Last Admin: 02/05/19 09:48 Dose: 1 applic Phenol/Menthol (Chloraseptic -) 1 spray MM Q6HPO PRN PRN Reason: SORE THROAT Simethicone (Mylicon -) 80 mg PO Q4H PRN PRN Reason: INDIGESTION - Objective Vital Signs: Vital Signs Temperature 98.7 F 02/05/19 02:00 Pulse Rate 75 02/05/19 02:00 Respiratory Rate 18 02/05/19 06:00 Blood Pressure 144/71 02/05/19 06:00 O2 Sat by Pulse Oximetry (%) 97 02/03/19 20:30 Constitutional: Yes: No Distress Eyes: Yes: Conjunctiva Clear Cardiovascular: Yes: Regular Rate and Rhythm, S1, S2 Respiratory: Yes: CTA Bilaterally Gastrointestinal: Yes: Normal Bowel Sounds, Soft, Other (DANIA DRAIN IN PLACE SEROSANGUINOUS DRAINAGE). No: Tenderness Extremities: No: Calf Tenderness Edema: No Labs: CBC, BMP 02/04/19 11:36 02/04/19 11:36 INR, PTT INR 1.12 (0.83-1.09) H 02/01/19 11:50 Assessment/Plan POD #4 LAPAROSCOPIC APPENDECTOMY GANGRENOUS APPENDICITIS LEUKOCYTOSIS- RESOLVED MAY SUBSTITUTE AUGMENTIN 875 MG PO BID X7D
--- NOTE | 2019-02-05 11:32 | PN ---
Progress Note (short form) - Note Progress Note: Denies shortness of breath or CP. No fevers or chills. Still tolerating PO intake. Intake & Output 02/02/19 02/03/19 02/04/19 02/05/19 23:59 23:59 23:59 23:59 Intake Total 2700 2205 2410 50 Output Total 70 10 91 Balance 2630 2195 2319 50 Weight 165 lb 5.547 oz Last Vital Signs Temp Pulse Resp BP Pulse Ox 98.7 F 75 18 144/71 97 02/05/19 02:00 02/05/19 02:00 02/05/19 06:00 02/05/19 06:00 02/03/19 20:30 Active Medications Acetaminophen (Ofirmev Injection -) 1,000 mg IVPB Q6H PRN PRN Reason: PAIN LEVEL 1-5 Last Admin: 02/04/19 00:16 Dose: 1,000 mg Benzocaine/Menthol (Cepacol Lozenge -) 1 each MM PRN PRN PRN Reason: SORE THROAT Chlorhexidine Gluconate (Hibiclens For Decolonization -) 1 applic TP HS [facility] Last Admin: 02/05/19 01:09 Dose: 1 applic Enoxaparin Sodium (Lovenox -) 40 mg SQ DAILY [facility] Last Admin: 02/05/19 09:47 Dose: 40 mg Sodium Chloride (Normal Saline -) 1,000 mls @ 75 mls/hr IV [facility]IR [facility] Last Admin: 02/04/19 17:00 Dose: Not Given Piperacillin Sod/Tazobactam (Sod 3.375 gm/ Dextrose) 50 mls @ 100 mls/hr IVPB Q8H-IV LEFTY; Protocol Last Admin: 02/05/19 09:47 Dose: 100 mls/hr Lisinopril (Prinivil) 10 mg PO DAILY [facility] Last Admin: 02/05/19 09:47 Dose: 10 mg Morphine Sulfate (Morphine Sulfate) 4 mg IVPUSH Q6H PRN PRN Reason: PAIN LEVEL 6-10 Mupirocin (Bactroban Ointment (For Decolonization) -) 1 applic NS BID [facility] Stop: 02/07/19 09:59 Last Admin: 02/05/19 09:48 Dose: 1 applic Phenol/Menthol (Chloraseptic -) 1 spray MM Q6HPO PRN PRN Reason: SORE THROAT Simethicone (Mylicon -) 80 mg PO Q4H PRN PRN Reason: INDIGESTION Gen: NAD Heart: RRR Lung: decreased breath sounds at the bases Abd: soft, nontender Ext: no edema Laboratory Results - last 24 hr 02/04/19 02/04/19 02/04/19 11:36 11:36 16:57 WBC 9.9 RBC 3.35 L Hgb 10.3 L Hct 31.0 L MCV 92.5 MCH 30.8 MCHC 33.3 RDW 14.5 Plt Count 363 MPV 7.8 Absolute Neuts (auto) 5.6 Neutrophils % 56.0 D Lymphocytes % 31.8 D Monocytes % 7.2 D Eosinophils % 4.2 D Basophils % 0.8 D Nucleated RBC % 0 Sodium 140 Potassium 3.8 Chloride 107 Carbon Dioxide 28 Anion Gap 5 L BUN 17 Creatinine 0.7 Creat Clearance w eGFR 83.98 POC Glucometer 136 Random Glucose 155 H Calcium 8.3 L Total Bilirubin 0.5 AST 73 H ALT 71 H Alkaline Phosphatase 154 H Total Protein 5.4 L Albumin 2.4 L 02/05/19 02/05/19 00:45 06:02 WBC RBC Hgb Hct MCV MCH MCHC RDW Plt Count MPV Absolute Neuts (auto) Neutrophils % Lymphocytes % Monocytes % Eosinophils % Basophils % Nucleated RBC % Sodium Potassium Chloride Carbon Dioxide Anion Gap BUN Creatinine Creat Clearance w eGFR POC Glucometer 135 175 Random Glucose Calcium Total Bilirubin AST ALT Alkaline Phosphatase Total Protein Albumin IMP: Acute Perforated Gangrenous Appendicitis s/p Laparoscopic Appendectomy Post Op Hypoxia Atelectasis HTN DM Hypercholesterolemia - continue antibiotics per ID - pain control - incentive spirometry - PO as tolerated - DVT prophylaxis - O2 as needed to maintain saturation Dr Kay Problem List - Problems (1) Atelectasis Code(s): J98.11 - ATELECTASIS (2) Pleural effusion Code(s): J90 - PLEURAL EFFUSION, NOT ELSEWHERE CLASSIFIED (3) Shortness of breath Code(s): R06.02 - SHORTNESS OF BREATH (4) Abdominal pain Code(s): R10.9 - UNSPECIFIED ABDOMINAL PAIN Qualifiers: Abdominal location: right lower quadrant Qualified Code(s): R10.31 - Right lower quadrant pain (5) Appendicitis, acute Code(s): K35.80 - UNSPECIFIED ACUTE APPENDICITIS Qualifiers: Acute appendicitis type: unspecified acute appendicitis type Qualified Code (s): K35.80 - Unspecified acute appendicitis (6) HTN (hypertension) Code(s): I10 - ESSENTIAL (PRIMARY) HYPERTENSION (7) Obesity Code(s): E66.9 - OBESITY, UNSPECIFIED
--- NOTE | 2019-02-05 15:04 | PN ---
Progress Note, Physician - Current Medication List Current Medications: Active Medications Acetaminophen (Ofirmev Injection -) 1,000 mg IVPB Q6H PRN PRN Reason: PAIN LEVEL 1-5 Last Admin: 02/04/19 00:16 Dose: 1,000 mg Benzocaine/Menthol (Cepacol Lozenge -) 1 each MM PRN PRN PRN Reason: SORE THROAT Chlorhexidine Gluconate (Hibiclens For Decolonization -) 1 applic TP HS [facility] Last Admin: 02/05/19 01:09 Dose: 1 applic Enoxaparin Sodium (Lovenox -) 40 mg SQ DAILY [facility] Last Admin: 02/05/19 09:47 Dose: 40 mg Sodium Chloride (Normal Saline -) 1,000 mls @ 75 mls/hr IV ASDIR [facility] Last Admin: 02/04/19 17:00 Dose: Not Given Piperacillin Sod/Tazobactam (Sod 3.375 gm/ Dextrose) 50 mls @ 100 mls/hr IVPB Q8H-IV [facility]; Protocol Last Admin: 02/05/19 09:47 Dose: 100 mls/hr Lisinopril (Prinivil) 10 mg PO DAILY [facility] Last Admin: 02/05/19 09:47 Dose: 10 mg Morphine Sulfate (Morphine Sulfate) 4 mg IVPUSH Q6H PRN PRN Reason: PAIN LEVEL 6-10 Mupirocin (Bactroban Ointment (For Decolonization) -) 1 applic NS BID [facility] Stop: 02/07/19 09:59 Last Admin: 02/05/19 09:48 Dose: 1 applic Phenol/Menthol (Chloraseptic -) 1 spray MM Q6HPO PRN PRN Reason: SORE THROAT Simethicone (Mylicon -) 80 mg PO Q4H PRN PRN Reason: INDIGESTION - Objective Vital Signs: Vital Signs Temperature 98.7 F 02/05/19 02:00 Pulse Rate 75 02/05/19 02:00 Respiratory Rate 18 02/05/19 09:00 Blood Pressure 144/71 02/05/19 06:00 O2 Sat by Pulse Oximetry (%) 97 02/03/19 20:30 Labs: CBC, BMP 02/04/19 11:36 02/04/19 11:36 INR, PTT INR 1.12 (0.83-1.09) H 02/01/19 11:50 Problem List - Problems (1) Appendicitis, acute Code(s): K35.80 - UNSPECIFIED ACUTE APPENDICITIS Qualifiers: Acute appendicitis type: unspecified acute appendicitis type Qualified Code (s): K35.80 - Unspecified acute appendicitis (2) Abdominal pain Code(s): R10.9 - UNSPECIFIED ABDOMINAL PAIN Qualifiers: Abdominal location: right lower quadrant Qualified Code(s): R10.31 - Right lower quadrant pain (3) Obesity Code(s): E66.9 - OBESITY, UNSPECIFIED (4) HTN (hypertension) Code(s): I10 - ESSENTIAL (PRIMARY) HYPERTENSION Assessment/Plan Surgery: She is tolerating diet and having bowel movements. Abdomen is soft not tender. Wbc is normal , afebrile. No shortness of breath. On antibiotics.
[2019-02-05] MEDS: SODIUM CHLORIDE 1,000 ML IV SCH (17:50)
[2019-02-06] MEDS ORDERED: PIPERACILLIN/TAZOBACTAM 3.375 GM VIAL IVPB ONE ×3 (03:18→17:51)
[2019-02-06] MEDS ORDERED: DEXTROSE 5%-WATER - 50 ML IVPB ONE ×3 (03:19→17:51)
[2019-02-06] MEDS: PIPERACILLIN/TAZOB 3.375 GM 3.375 GM in DEXTROSE 5%-WATER - 50 ML IVPB SCH ×3 (03:22→17:52)
[2019-02-06 06:53] LABS: BASO % 0.7 % (0-2.0); EOS % 3.9 % (0-4.5); HEMATOCRIT 33.5 % (32.4-45.2); HEMOGLOBIN 11.3 GM/dL (10.7-15.3); LYMPH % 34.1 % (8-40); MCH 31.2 pg (25.7-33.7); MCHC 33.8 g/dl (32.0-36.0); MEAN CELL VOLUME 92.3 fl (80-96); MEAN PLT VOLUME 7.7 fl (7.5-11.1); NEUT % 51.3 % (42.8-82.8); PLATELET COUNT 439 K/MM3 (134-434); RBC 3.63 M/mm3 (3.60-5.2); RDW 14.6 % (11.6-15.6); WHITE BLOOD COUNT 11.6 K/mm3 (4.0-10.0)
[2019-02-06 06:57] LABS: ALBUMIN 2.9 g/dl (3.4-5.0); ALK PHOS 171 U/L (45-117); ANION GAP 7 MMOL/L (8-16); BILIRUBIN,TOTAL 0.5 mg/dL (0.2-1); BLOOD UREA NITROGEN 12 mg/dL (7-18); CALCIUM 9.5 mg/dL (8.5-10.1); CHLORIDE 104 mmol/L (98-107); CO2 28 mmol/L (21-32); CREATININE 0.7 mg/dL (0.55-1.3); GLUCOSE,RANDOM 168 mg/dL (74-106); POTASSIUM 4.2 mmol/L (3.5-5.1); SGOT/AST 29 U/L (15-37); SGPT/ALT 104 U/L (13-61); SODIUM 139 mmol/L (136-145); TOT PROT 6.2 g/dl (6.4-8.2)
[2019-02-06] MEDS: MUPIROCIN 2% TOPICAL OINTMENT FOR DECOLONIZATION NS SCH (09:25)
[2019-02-06] MEDS: ENOXAPARIN NA (PORCINE) 40 MG/0.4 ML DISP.SYRIN SQ SCH (09:28)
[2019-02-06] MEDS: LISINOPRIL 10 MG TABLET (FP) PO SCH (09:29)
[2019-02-06 12:03] LABS: ANISOCYTOSIS 2+; MACROCYTOSIS 1+; OVALOCYTE 1+; PLATELET ESTIMATE NORMAL
--- NOTE | 2019-02-06 16:00 | PN ---
Progress Note, Physician - Current Medication List Current Medications: Active Medications Acetaminophen (Ofirmev Injection -) 1,000 mg IVPB Q6H PRN PRN Reason: PAIN LEVEL 1-5 Last Admin: 02/04/19 00:16 Dose: 1,000 mg Benzocaine/Menthol (Cepacol Lozenge -) 1 each MM PRN PRN PRN Reason: SORE THROAT Chlorhexidine Gluconate (Hibiclens For Decolonization -) 1 applic TP HS [facility] Last Admin: 02/05/19 22:34 Dose: 1 applic Enoxaparin Sodium (Lovenox -) 40 mg SQ DAILY [facility] Last Admin: 02/06/19 09:28 Dose: 40 mg Sodium Chloride (Normal Saline -) 1,000 mls @ 75 mls/hr IV ASDIR [facility] Last Admin: 02/05/19 17:50 Dose: Not Given Piperacillin Sod/Tazobactam (Sod 3.375 gm/ Dextrose) 50 mls @ 100 mls/hr IVPB Q8H-IV [facility]; Protocol Last Admin: 02/06/19 09:26 Dose: 100 mls/hr Lisinopril (Prinivil) 10 mg PO DAILY [facility] Last Admin: 02/06/19 09:29 Dose: 10 mg Morphine Sulfate (Morphine Sulfate) 4 mg IVPUSH Q6H PRN PRN Reason: PAIN LEVEL 6-10 Mupirocin (Bactroban Ointment (For Decolonization) -) 1 applic NS BID [facility] Stop: 02/07/19 09:59 Last Admin: 02/06/19 09:25 Dose: Not Given Phenol/Menthol (Chloraseptic -) 1 spray MM Q6HPO PRN PRN Reason: SORE THROAT Simethicone (Mylicon -) 80 mg PO Q4H PRN PRN Reason: INDIGESTION - Objective Vital Signs: Vital Signs Temperature 98.6 F 02/06/19 13:33 Pulse Rate 70 02/06/19 13:33 Respiratory Rate 20 02/06/19 13:33 Blood Pressure 110/72 02/06/19 13:33 O2 Sat by Pulse Oximetry (%) 100 02/06/19 09:00 Labs: CBC, BMP 02/06/19 05:30 02/06/19 05:30 INR, PTT INR 1.12 (0.83-1.09) H 02/01/19 11:50 Problem List - Problems (1) Appendicitis, acute Code(s): K35.80 - UNSPECIFIED ACUTE APPENDICITIS Qualifiers: Acute appendicitis type: unspecified acute appendicitis type Qualified Code (s): K35.80 - Unspecified acute appendicitis (2) Abdominal pain Code(s): R10.9 - UNSPECIFIED ABDOMINAL PAIN Qualifiers: Abdominal location: right lower quadrant Qualified Code(s): R10.31 - Right lower quadrant pain (3) Obesity Code(s): E66.9 - OBESITY, UNSPECIFIED (4) HTN (hypertension) Code(s): I10 - ESSENTIAL (PRIMARY) HYPERTENSION Assessment[place] [address]. Afebrile. Alkaline phospshatase is elevated having bowel movements, Drainage reduced to 35 ml. ? Intrabdominal collection. Antibiotics switched to Augmentin. If WBc remains elevated consider followup abdominal CT scan. ID following the patient.
--- NOTE | 2019-02-06 18:06 | PN ---
Progress Note, Physician Chief Complaint: Acute Appendicitis History of Present Illness: Previous notes and events reviewed awake and alert NAD DANIA drain leukocytosis and elevated LFTs - Current Medication List Current Medications: Active Medications Acetaminophen (Ofirmev Injection -) 1,000 mg IVPB Q6H PRN PRN Reason: PAIN LEVEL 1-5 Last Admin: 02/04/19 00:16 Dose: 1,000 mg Benzocaine/Menthol (Cepacol Lozenge -) 1 each MM PRN PRN PRN Reason: SORE THROAT Chlorhexidine Gluconate (Hibiclens For Decolonization -) 1 applic TP HS [facility] Last Admin: 02/05/19 22:34 Dose: 1 applic Enoxaparin Sodium (Lovenox -) 40 mg SQ DAILY [facility] Last Admin: 02/06/19 09:28 Dose: 40 mg Sodium Chloride (Normal Saline -) 1,000 mls @ 75 mls/hr IV ASDIR [facility] Last Admin: 02/05/19 17:50 Dose: Not Given Piperacillin Sod/Tazobactam (Sod 3.375 gm/ Dextrose) 50 mls @ 100 mls/hr IVPB Q8H-IV [facility]; Protocol Last Admin: 02/06/19 17:52 Dose: 100 mls/hr Lisinopril (Prinivil) 10 mg PO DAILY [facility] Last Admin: 02/06/19 09:29 Dose: 10 mg Morphine Sulfate (Morphine Sulfate) 4 mg IVPUSH Q6H PRN PRN Reason: PAIN LEVEL 6-10 Mupirocin (Bactroban Ointment (For Decolonization) -) 1 applic NS BID [facility] Stop: 02/07/19 09:59 Last Admin: 02/06/19 09:25 Dose: Not Given Phenol/Menthol (Chloraseptic -) 1 spray MM Q6HPO PRN PRN Reason: SORE THROAT Simethicone (Mylicon -) 80 mg PO Q4H PRN PRN Reason: INDIGESTION - Objective Vital Signs: Vital Signs Temperature 98.6 F 02/06/19 13:33 Pulse Rate 70 02/06/19 13:33 Respiratory Rate 20 02/06/19 13:33 Blood Pressure 110/72 02/06/19 13:33 O2 Sat by Pulse Oximetry (%) 100 02/06/19 09:00 Constitutional: Yes: No Distress, Calm Eyes: Yes: Conjunctiva Clear HENT: Yes: Atraumatic Cardiovascular: Yes: Regular Rate and Rhythm Respiratory: Yes: Regular, CTA Bilaterally Gastrointestinal: Yes: Normal Bowel Sounds, Soft, Tenderness (epigastric) Musculoskeletal: Yes: Muscle Weakness Extremities: Yes: WNL Edema: No Neurological: Yes: Alert, Oriented Psychiatric: Yes: Alert, Oriented Labs: CBC, BMP 02/06/19 05:30 02/06/19 05:30 INR, PTT INR 1.12 (0.83-1.09) H 02/01/19 11:50 Microbiology 02/01/19 11:10 Blood - Peripheral Venous Blood Culture - Final NO GROWTH AFTER 5 DAYS INCUBATION 02/01/19 12:10 Blood - Peripheral Venous Blood Culture - Final NO GROWTH AFTER 5 DAYS INCUBATION 02/01/19 20:04 Appendix Gram Stain - Final 02/01/19 20:04 Appendix Wound Culture - Final Streptococcus Constellatus 02/01/19 13:15 Urine - Urine Clean Catch Urine Culture - Final Contaminated: Please Repeat Problem List - Problems (1) Appendicitis, acute Assessment/Plan: -Surgery on board -DANIA drain--noted more sanguinous -s/p laparoscopic appendectomy -IV Zosyn -WBC 11.6--if WBC continue elev consider CT scan of abdomen Code(s): K35.80 - UNSPECIFIED ACUTE APPENDICITIS Qualifiers: Acute appendicitis type: unspecified acute appendicitis type Qualified Code (s): K35.80 - Unspecified acute appendicitis (2) HTN (hypertension) Assessment/Plan: -continue Lisinopril -low Na diet Code(s): I10 - ESSENTIAL (PRIMARY) HYPERTENSION (3) Perforated appendicitis Assessment/Plan: -Surgery on board -DANIA drain--noted more sanguinous -s/p laparoscopic appendectomy -IV Zosyn -WBC 11.6 Code(s): K35.32 - ACUTE APPENDICITIS WITH PERF AND LOC PERITONITIS, W/O ABSCS (4) Elevated LFTs Assessment/Plan: -AST 104, alk phos 171 -abdominal US Code(s): R94.5 - ABNORMAL RESULTS OF LIVER FUNCTION STUDIES Assessment/Plan see problem list dvt ppx
[2019-02-07] MEDS: INSULIN SLIDING SCALE (NOVOLOG) 1 VIAL SQ SCH ×5 (00:43→21:57)
[2019-02-07] MEDS ORDERED: DEXTROSE 5%-WATER - 50 ML IVPB ONE ×3 (03:48→17:12)
[2019-02-07] MEDS ORDERED: PIPERACILLIN/TAZOBACTAM 3.375 GM VIAL IVPB ONE ×3 (03:48→17:12)
[2019-02-07] MEDS: PIPERACILLIN/TAZOB 3.375 GM 3.375 GM in DEXTROSE 5%-WATER - 50 ML IVPB SCH ×3 (03:57→17:17)
[2019-02-07 06:54] LABS: ALBUMIN 2.9 g/dl (3.4-5.0); ALK PHOS 150 U/L (45-117); ANION GAP 6 MMOL/L (8-16); BILIRUBIN,TOTAL 0.4 mg/dL (0.2-1); BLOOD UREA NITROGEN 15 mg/dL (7-18); CALCIUM 8.9 mg/dL (8.5-10.1); CHLORIDE 104 mmol/L (98-107); CO2 27 mmol/L (21-32); CREATININE 0.7 mg/dL (0.55-1.3); GLUCOSE,RANDOM 193 mg/dL (74-106); POTASSIUM 4.3 mmol/L (3.5-5.1); SGOT/AST 14 U/L (15-37); SGPT/ALT 78 U/L (13-61); SODIUM 137 mmol/L (136-145); TOT PROT 6.3 g/dl (6.4-8.2)
[2019-02-07 07:33] LABS: HEMATOCRIT 34.5 % (32.4-45.2); HEMOGLOBIN 11.5 GM/dL (10.7-15.3); MCH 30.9 pg (25.7-33.7); MCHC 33.2 g/dl (32.0-36.0); MEAN CELL VOLUME 93.1 fl (80-96); MEAN PLT VOLUME 7.6 fl (7.5-11.1); PLATELET COUNT 455 K/MM3 (134-434); RDW 14.4 % (11.6-15.6); WHITE BLOOD COUNT 12.7 K/mm3 (4.0-10.0)
[2019-02-07] MEDS: ENOXAPARIN NA (PORCINE) 40 MG/0.4 ML DISP.SYRIN SQ SCH (10:10)
[2019-02-07] MEDS: LISINOPRIL 10 MG TABLET (FP) PO SCH (10:11)
--- NOTE | 2019-02-07 11:12 | PN ---
Progress Note, Physician - Current Medication List Current Medications: Active Medications Acetaminophen (Ofirmev Injection -) 1,000 mg IVPB Q6H PRN PRN Reason: PAIN LEVEL 1-5 Last Admin: 02/04/19 00:16 Dose: 1,000 mg Benzocaine/Menthol (Cepacol Lozenge -) 1 each MM PRN PRN PRN Reason: SORE THROAT Enoxaparin Sodium (Lovenox -) 40 mg SQ DAILY [facility] Last Admin: 02/07/19 10:10 Dose: 40 mg Piperacillin Sod/Tazobactam (Sod 3.375 gm/ Dextrose) 50 mls @ 100 mls/hr IVPB Q8H-IV [facility]; Protocol Last Admin: 02/07/19 10:11 Dose: 100 mls/hr Insulin Aspart (Novolog Vial Sliding Scale -) 1 vial SQ ACHS [facility]; Protocol Last Admin: 02/07/19 06:11 Dose: Not Given Lisinopril (Prinivil) 10 mg PO DAILY [facility] Last Admin: 02/07/19 10:11 Dose: 10 mg Phenol/Menthol (Chloraseptic -) 1 spray MM Q6HPO PRN PRN Reason: SORE THROAT Simethicone (Mylicon -) 80 mg PO Q4H PRN PRN Reason: INDIGESTION - Objective Vital Signs: Vital Signs Temperature 98.2 F 02/07/19 08:49 Pulse Rate 68 02/07/19 08:49 Respiratory Rate 16 02/07/19 08:49 Blood Pressure 130/72 02/07/19 08:49 O2 Sat by Pulse Oximetry (%) 100 02/06/19 21:31 Cardiovascular: Yes: Regular Rate and Rhythm Respiratory: Yes: Regular, CTA Bilaterally Gastrointestinal: Yes: Normal Bowel Sounds, Soft Labs: CBC, BMP 02/07/19 05:30 02/07/19 05:30 INR, PTT INR 1.12 (0.83-1.09) H 02/01/19 11:50 Problem List - Problems (1) Perforated appendicitis Code(s): K35.32 - ACUTE APPENDICITIS WITH PERF AND LOC PERITONITIS, W/O ABSCS (2) Epigastric pain Code(s): R10.13 - EPIGASTRIC PAIN (3) HTN (hypertension) Code(s): I10 - ESSENTIAL (PRIMARY) HYPERTENSION (4) Shortness of breath Code(s): R06.02 - SHORTNESS OF BREATH Assessment/Plan - Problems (1) Appendicitis, acute Assessment/Plan: s/p laproscopic appendectomy- acute gangrenous perforated appendicitis now on regular diet wbc trending up surgery on board us noted pain control Code(s): K35.80 - UNSPECIFIED ACUTE APPENDICITIS Qualifiers: Acute appendicitis type: unspecified acute appendicitis type Qualified Code (s): K35.80 - Unspecified acute appendicitis (2) HTN (hypertension) Assessment/Plan: BP noted in 140 systolic restart prinivil Code(s): I10 - ESSENTIAL (PRIMARY) HYPERTENSION (3) Fever Assessment/Plan: leukocytosis trending up no more fever ID iv abx Microbiology 02/01/19 20:04 Appendix Gram Stain - Final 02/01/19 20:04 Appendix Wound Culture - Final Streptococcus Constellatus Code(s): R50.9 - FEVER, UNSPECIFIED
--- NOTE | 2019-02-07 11:42 | PN ---
Progress Note, Physician - Current Medication List Current Medications: Active Medications Acetaminophen (Ofirmev Injection -) 1,000 mg IVPB Q6H PRN PRN Reason: PAIN LEVEL 1-5 Last Admin: 02/04/19 00:16 Dose: 1,000 mg Benzocaine/Menthol (Cepacol Lozenge -) 1 each MM PRN PRN PRN Reason: SORE THROAT Enoxaparin Sodium (Lovenox -) 40 mg SQ DAILY [facility] Last Admin: 02/07/19 10:10 Dose: 40 mg Piperacillin Sod/Tazobactam (Sod 3.375 gm/ Dextrose) 50 mls @ 100 mls/hr IVPB Q8H-IV [facility]; Protocol Last Admin: 02/07/19 10:11 Dose: 100 mls/hr Insulin Aspart (Novolog Vial Sliding Scale -) 1 vial SQ ACHS [facility]; Protocol Last Admin: 02/07/19 06:11 Dose: Not Given Lisinopril (Prinivil) 10 mg PO DAILY [facility] Last Admin: 02/07/19 10:11 Dose: 10 mg Phenol/Menthol (Chloraseptic -) 1 spray MM Q6HPO PRN PRN Reason: SORE THROAT Simethicone (Mylicon -) 80 mg PO Q4H PRN PRN Reason: INDIGESTION - Objective Vital Signs: Vital Signs Temperature 98.2 F 02/07/19 08:49 Pulse Rate 68 02/07/19 08:49 Respiratory Rate 16 02/07/19 08:49 Blood Pressure 130/72 02/07/19 08:49 O2 Sat by Pulse Oximetry (%) 100 02/06/19 21:31 Labs: CBC, BMP 02/07/19 05:30 02/07/19 05:30 INR, PTT INR 1.12 (0.83-1.09) H 02/01/19 11:50 Problem List - Problems (1) Appendicitis, acute Code(s): K35.80 - UNSPECIFIED ACUTE APPENDICITIS Qualifiers: Acute appendicitis type: unspecified acute appendicitis type Qualified Code (s): K35.80 - Unspecified acute appendicitis (2) Abdominal pain Code(s): R10.9 - UNSPECIFIED ABDOMINAL PAIN Qualifiers: Abdominal location: right lower quadrant Qualified Code(s): R10.31 - Right lower quadrant pain (3) Obesity Code(s): E66.9 - OBESITY, UNSPECIFIED (4) HTN (hypertension) Code(s): I10 - ESSENTIAL (PRIMARY) HYPERTENSION Assessment/Plan Surgery: patient is out of bed , reading , has no complaints, WBC is rising, 12.7 Afebrile, Patient feels well and looks OK Drain draining some bloody fluid, total 25ml. Has some tenderness in right lower quadrant, no pain in right upper quadrant. R/O residual abdominal abscess / collection. patient is informed. Will hold drain until CT scan is reported.
[2019-02-08] MEDS ORDERED: PT OWN MED DRAWER 7, Y5N ONE (02:54)
[2019-02-08] MEDS: PIPERACILLIN/TAZOB 3.375 GM 3.375 GM in DEXTROSE 5%-WATER - 50 ML IVPB SCH ×2 (02:58→10:37)
[2019-02-08 06:40] LABS: BASO % 0.6 % (0-2.0); EOS % 3.6 % (0-4.5); HEMATOCRIT 32.9 % (32.4-45.2); HEMOGLOBIN 11.3 GM/dL (10.7-15.3); LYMPH % 35.1 % (8-40); MCHC 34.3 g/dl (32.0-36.0); MEAN PLT VOLUME 7.4 fl (7.5-11.1); MONO % 7.3 % (3.8-10.2); NEUT % 53.4 % (42.8-82.8); PLATELET COUNT 480 K/MM3 (134-434); RBC 3.54 M/mm3 (3.60-5.2); RDW 14.8 % (11.6-15.6)
[2019-02-08] MEDS: INSULIN SLIDING SCALE (NOVOLOG) 1 VIAL SQ SCH ×3 (06:40→17:08)
[2019-02-08 07:21] LABS: ALBUMIN 2.9 g/dl (3.4-5.0); ALK PHOS 132 U/L (45-117); ANION GAP 6 MMOL/L (8-16); BILIRUBIN,TOTAL 0.5 mg/dL (0.2-1); BLOOD UREA NITROGEN 17 mg/dL (7-18); CALCIUM 9.1 mg/dL (8.5-10.1); CHLORIDE 103 mmol/L (98-107); CO2 26 mmol/L (21-32); CREATININE 0.8 mg/dL (0.55-1.3); GLUCOSE,RANDOM 175 mg/dL (74-106); POTASSIUM 4.5 mmol/L (3.5-5.1); SGOT/AST 10 U/L (15-37); SGPT/ALT 60 U/L (13-61); SODIUM 136 mmol/L (136-145); TOT PROT 6.4 g/dl (6.4-8.2)
--- NOTE | 2019-02-08 09:25 | DS ---
Physical Examination Vital Signs: Vital Signs Temperature 98.2 F 02/08/19 04:00 Pulse Rate 64 02/08/19 04:00 Respiratory Rate 19 02/08/19 04:00 Blood Pressure 116/63 02/08/19 04:00 O2 Sat by Pulse Oximetry (%) 100 02/07/19 20:01 Cardiovascular: Yes: Regular Rate and Rhythm Respiratory: Yes: Regular, CTA Bilaterally Gastrointestinal: Yes: Normal Bowel Sounds, Soft. No: Tenderness Labs: CBC, BMP 02/08/19 05:30 02/08/19 05:30 Discharge Summary Reason For Visit: ACUTE APPENDICITIS Current Active Problems Abdominal pain (Acute) Appendicitis, acute (Acute) Atelectasis (Acute) Elevated LFTs (Acute) Epigastric pain (Acute) Fever (Acute) HTN (hypertension) (Acute) Obesity (Acute) Perforated appendicitis (Acute) Pleural effusion (Acute) Shortness of breath (Acute) Hospital Course: - Problems (1) Appendicitis, acute Assessment/Plan: s/p laproscopic appendectomy- acute gangrenous perforated appendicitis now on regular diet wbc trending up--ID follow up--on [facility] surgery on board--follow up regarding drain us noted pain control Code(s): K35.80 - UNSPECIFIED ACUTE APPENDICITIS Qualifiers: Acute appendicitis type: unspecified acute appendicitis type Qualified Code (s): K35.80 - Unspecified acute appendicitis (2) HTN (hypertension) Assessment/Plan: BP noted in 140 systolic restart prinivil Code(s): I10 - ESSENTIAL (PRIMARY) HYPERTENSION (3) Fever Assessment/Plan: leukocytosis trending up no more fever ID iv abx Microbiology 02/01/19 20:04 Appendix Gram Stain - Final 02/01/19 20:04 Appendix Wound Culture - Final Streptococcus Constellatus Code(s): R50.9 - FEVER, UNSPECIFIED Condition: Improved - Instructions Disposition: HOME - Home Medications Comprehensive Discharge Medication List: Ambulatory Orders Aspirin [Aspirin EC] 81 mg PO DAILY 02/01/19 Atorvastatin Ca [Lipitor] 40 mg PO HS 02/01/19 Lisinopril [Prinivil] 10 mg PO DAILY 02/01/19 Simethicone [Mylicon -] 80 mg PO Q4H PRN tab.chew 02/08/19
[2019-02-08] MEDS ORDERED: PIPERACILLIN/TAZOBACTAM 3.375 GM VIAL IVPB ONE (09:48)
[2019-02-08] MEDS ORDERED: DEXTROSE 5%-WATER - 50 ML IVPB ONE (09:48)
[2019-02-08] MEDS: LISINOPRIL 10 MG TABLET (FP) PO SCH (10:37)
[2019-02-08] MEDS: ENOXAPARIN NA (PORCINE) 40 MG/0.4 ML DISP.SYRIN SQ SCH (10:37)
[2019-02-08 10:38] VITALS: BP 111/74; PULSE 86; TEMP 98
--- NOTE | 2019-02-08 15:51 | PN ---
Progress Note, Physician - Current Medication List Current Medications: Active Medications Acetaminophen (Ofirmev Injection -) 1,000 mg IVPB Q6H PRN PRN Reason: PAIN LEVEL 1-5 Last Admin: 02/04/19 00:16 Dose: 1,000 mg Benzocaine/Menthol (Cepacol Lozenge -) 1 each MM PRN PRN PRN Reason: SORE THROAT Enoxaparin Sodium (Lovenox -) 40 mg SQ DAILY [facility] Last Admin: 02/08/19 10:37 Dose: 40 mg Piperacillin Sod/Tazobactam (Sod 3.375 gm/ Dextrose) 50 mls @ 100 mls/hr IVPB Q8H-IV [facility]; Protocol Last Admin: 02/08/19 10:37 Dose: 100 mls/hr Insulin Aspart (Novolog Vial Sliding Scale -) 1 vial SQ ACHS [facility]; Protocol Last Admin: 02/08/19 11:51 Dose: Not Given Lisinopril (Prinivil) 10 mg PO DAILY [facility] Last Admin: 02/08/19 10:37 Dose: 10 mg Phenol/Menthol (Chloraseptic -) 1 spray MM Q6HPO PRN PRN Reason: SORE THROAT Simethicone (Mylicon -) 80 mg PO Q4H PRN PRN Reason: INDIGESTION - Objective Vital Signs: Vital Signs Temperature 98 F 02/08/19 10:00 Pulse Rate 86 02/08/19 10:00 Respiratory Rate 18 02/08/19 10:00 Blood Pressure 111/74 02/08/19 10:00 O2 Sat by Pulse Oximetry (%) 100 02/08/19 09:00 Labs: CBC, BMP 02/08/19 05:30 02/08/19 05:30 INR, PTT INR 1.12 (0.83-1.09) H 02/01/19 11:50 Problem List - Problems (1) Appendicitis, acute Code(s): K35.80 - UNSPECIFIED ACUTE APPENDICITIS Qualifiers: Acute appendicitis type: unspecified acute appendicitis type Qualified Code (s): K35.80 - Unspecified acute appendicitis (2) Abdominal pain Code(s): R10.9 - UNSPECIFIED ABDOMINAL PAIN Qualifiers: Abdominal location: right lower quadrant Qualified Code(s): R10.31 - Right lower quadrant pain (3) Obesity Code(s): E66.9 - OBESITY, UNSPECIFIED (4) HTN (hypertension) Code(s): I10 - ESSENTIAL (PRIMARY) HYPERTENSION Assessment/Plan Surgery: patient is afebrile. Abdomen is soft, not tender. Drain removed. CT scan shows [place] [address]. She is being sent home with Augmentin. Follow up in my office,.
[2019-02-08] MEDS ORDERED: AMOX TR/POT CLAV 875MG/125MG TABLETS (FP) PO SCH (17:30)
--- NOTE | 2019-02-08 18:16 | PN ---
Progress Note, Physician History of Present Illness: AWAKE, ALERT OOB IN CHAIR NO C/O ABDOMINAL PAIN NO N/V AFEBRILE WBC SL ELEVATED F/U CT NO ABSCESS - Objective Vital Signs: Vital Signs Temperature 98 F 02/08/19 10:00 Pulse Rate 86 02/08/19 10:00 Respiratory Rate 18 02/08/19 10:00 Blood Pressure 111/74 02/08/19 10:00 O2 Sat by Pulse Oximetry (%) 100 02/08/19 09:00 Constitutional: Yes: No Distress Cardiovascular: Yes: Regular Rate and Rhythm, S1, S2 Respiratory: Yes: CTA Bilaterally Gastrointestinal: Yes: Normal Bowel Sounds, Soft, Other (NO TENDERNESS DRAIN REMOVED) Edema: No Labs: CBC, BMP 02/08/19 05:30 02/08/19 05:30 INR, PTT INR 1.12 (0.83-1.09) H 02/01/19 11:50 Assessment/Plan POD #7 LAPAROSCOPIC APPENDECTOMY GANGRENOUS APPENDICITIS SUBSTITUTE AUGMENTIN 875 MG PO BID X7D
== END 2019-02-08 17:40 | disposition home or self-care (01) | DRG 981 ==
LOC: JER 10:21 → J2W 02-02 04:06 → OBSVTOIN 02-05 10:43
PROVIDERS: ADMIT Nurse Practitioner Family; ATTEND Student in an Organized Health Care Education/Training Program
PROC: 0DTJ4ZZ Resection of Appendix, Percutaneous Endoscopic Approach (ICD-10-PCS; principal; 2019-02-05)
DX: J95.89 Other postprocedural complications and disorders of respiratory system, not elsewhere classified (principal); K35.33 Acute appendicitis with perforation, localized peritonitis, and gangrene, with abscess; J98.11 Atelectasis; J90 Pleural effusion, not elsewhere classified; I10 Essential (primary) hypertension; E78.5 Hyperlipidemia, unspecified; R50.9 Fever, unspecified; E11.9 Type 2 diabetes mellitus without complications; E66.9 Obesity, unspecified; Z68.31 Body mass index [BMI] 31.0-31.9, adult; R09.02 Hypoxemia; Y83.8 Other surgical procedures as the cause of abnormal reaction of the patient, or of later complication, without mention of misadventure at the time of the procedure; R06.02 Shortness of breath; R10.13 Epigastric pain; E78.00 Pure hypercholesterolemia, unspecified; D72.829 Elevated white blood cell count, unspecified; R94.5 Abnormal results of liver function studies
CPT/HCPCS: 36415; 71045-TC-FY; 71275-TC; 74177-TC; 76700-TC; 80048; 80053; 81003; 82550; 82962; 83605; 83690; 83880; 84484; 85025; 85027; 85610; 85730; 86140; 86850; 86900; 86901; 87040; 87070; 87077; 87086; 87186; 87205; 88304-TC; 93005; 93010; 94760; 99285-25; G0378; J0131; J7030; Q9967